=== PATIENT | female | born 1935 | race Caucasian/White ===

== ENCOUNTER 2016-07-14 11:18 | Inpatient (IN) | payer MEDICARE, OTHER ==
[~2016-07-14] VITALS: Ht 157.5 cm; Wt 59.0 kg
[~2016-07-14 11:18] MED LIST: ATOR40TA PO; BETH25TA PO; DONE5TAB34 PO; LISI-603 PO; LORA0.5T PO; MEMA5TAB PO; METF500T4 PO; METO25TA3 PO; NIFE30TA2 PO; RIVA10TA PO; TRAM50TA2 PO; TRIA1CAP6 PO; ZOLP5TAB7 PO
[2016-07-14 12:07] LABS: BASOPHILS % (AUTO) 0.1 % (0.0-2.0); DIFF TOTAL % 100 %; EOSINOPHILS # (AUTO) 0.1 /CMM (0.0-0.7); EOSINOPHILS % (AUTO) 0.7 % (0.0-6.0); HEMATOCRIT 35 % (33-45); HEMOGLOBIN 11.3 g/dL (11.5-14.8); LYMPHOCYTES % (AUTO) 5.8 % (20.0-44.0); MEAN CORPUSCULAR HEMOGLOBIN 28 PG (26.0-33.0); MEAN CORPUSCULAR HGB CONC 33 g/dl (31.0-36.0); MEAN CORPUSCULAR VOLUME 86 fL (82-100); MONOCYTES # (AUTO) 0.5 /CMM (0.1-1.30); MONOCYTES % (AUTO) 3.2 % (2.0-12.0); NEUTROPHILS # (AUTO) 14.9 /CMM (1.8-8.9); NEUTROPHILS % (AUTO) 90.2 % (43.0-81.0); PLATELET COUNT (AUTO) 374 /CMM (150-450); WHITE BLOOD COUNT (AUTO) 16.5 K/uL (4.3-11.0)
[2016-07-14] MEDS ORDERED: IV SET PRIMARY 1 EA INFUS.SET MC ONE (12:10)
[2016-07-14] MEDS ORDERED: IV NS 0.9% 500 ML IV ONE (12:10)
[2016-07-14 12:18] LABS: INR 1.2 (0.87-1.13); PROTHROMBIN TIME 12.6 SECS (9.5-12.7)
[2016-07-14 12:21] LABS: ANION GAP 13 (5-14); CALCIUM, SERUM 9.3 mg/dL (8.5-10.1); CARBON DIOXIDE 27 mmol/L (21-32); CHLORIDE 103 mmol/L (98-107); CREATININE 1.3 mg/dL (0.6-1.3); GLUCOSE 219 mg/dL (74-106); POTASSIUM 4.9 mmol/L (3.5-5.1); SODIUM SERUM 138 mmol/L (136-145); UREA NITROGEN, BLOOD 24 mg/dL (7-18)
[2016-07-14 12:29] LABS: TROPONIN I < 0.017 ng/mL (0.00-0.056)
[2016-07-14] MEDS ORDERED: IV NS 0.9% 500 ML BAG IV ONE (12:30)
[2016-07-14 12:34] LABS: ALANINE AMINOTRANSFERASE 20 U/L (12-78); ALBUMIN 3.2 g/dL (3.4-5.0); ASPARTATE AMINOTRANSFERASE 16 U/L (15-37); BILIRUBIN,DIRECT 0.1 mg/dL (0.0-0.2); BILIRUBIN,TOTAL 0.6 mg/dL (0.2-1.0); INDIRECT BILIRUBIN 0.5 mg/dL (0.0-1.1); TOTAL PROTEIN, SERUM 7.1 g/dL (6.4-8.2)
[2016-07-14 12:35] LABS: KETONES,URINE NEGATIVE (NEGATIVE); LEUKOCYTE ESTERASE ,URINE 2+ (NEGATIVE); PH,URINE 6.5 (5.0-8.0)
[2016-07-14 12:36] LABS: LACTIC ACID 3.2 mmol/L (0.4-2.0)
[2016-07-14] MEDS ORDERED: POTA8TAB3 PO (12:46)
[2016-07-14 13:01] LABS: ADD UA MICROSCOPIC YES
[2016-07-14 13:01] LABS: *LACTIC ACID REFLEX FLAG YES
[2016-07-14 13:06] LABS: ADD URINE CULTURE YES; RBC,URINE 21-50 /HPF (0-2); WBC,URINE 21-50 /HPF (0-3)
[2016-07-14] MEDS ORDERED: CEFTRIAXONE 1GM BAG (ER ONLY) 50 ML IV ONE ×2 (13:24→13:30)
[2016-07-14] MEDS ORDERED: IV SET PRIMARY PUMP SET 1 EA INFUS.SET MC ONE ×2 (13:24→14:58)
[2016-07-14] MEDS ORDERED: TRIAMTERENE/HYDROCHLOROTHIAZID (37.5/25MG) 1 UDCAP PO SCH (14:00)
[2016-07-14] MEDS ORDERED: LORAZEPAM 0.5 MG TABLET PO PRN (14:00)
[2016-07-14] MEDS ORDERED: MAG HYDROX/AL HYDROX/SIMETH 30 ML UDC PO PRN (14:00)
[2016-07-14] MEDS ORDERED: ACETAMINOPHEN 325 MG TABLET PO PRN (14:00)
[2016-07-14] MEDS: DONEPEZIL 5 MG TABLET PO SCH (14:00)
[2016-07-14] MEDS ORDERED: Z GUARD REMEDY 2 OZ OINT TP PRN (14:00)
[2016-07-14] MEDS ORDERED: Medication Not On Formulary EA (Potassium Chloride 8 MEQ) PO SCH (14:00)
[2016-07-14] MEDS: LISINOPRIL (20MG) 20 MG TABLET PO SCH ×2 (14:00→16:28)
[2016-07-14] MEDS ORDERED: MAGNESIUM HYDROXIDE 30 ML UDC PO PRN (14:00)
[2016-07-14] MEDS ORDERED: HYDROCODONE/APAP 5/325MG 1 EACH TABLET PO PRN (14:00)
[2016-07-14] MEDS ORDERED: TRAMADOL HCL 50 MG TABLET PO PRN (14:00)
[2016-07-14] MEDS ORDERED: ZOLPIDEM TARTRATE 5 MG TABLET PO PRN ×2 (14:00→22:00)
[2016-07-14] MEDS ORDERED: ONDANSETRON HCL/PF 4 MG/2 ML VIAL IVP PRN (14:00)
[2016-07-14] MEDS: IV NS 0.9% 1,000 ML IV PRN (15:11)
[2016-07-14 16:00] VITALS: BP 122/62
[2016-07-14] MEDS: METOPROLOL SUCCINATE 25 MG TAB.SR.24H PO SCH (16:28)
[2016-07-14 17:00] VITALS: BP 122/62
[2016-07-14] MEDS: MEMANTINE HCL 5 MG TABLET PO SCH (17:08)
[2016-07-14] MEDS: METFORMIN 500 MG TABLET PO SCH (17:08)
[2016-07-14] MEDS: BETHANECHOL CHLORIDE (25 MG) 25 MG TABLET PO SCH (17:08)
[2016-07-14] MEDS: RIVAROXABAN 10 MG TABLET PO SCH (17:09)
[2016-07-14 20:00] VITALS: BP 137/33
[2016-07-14 21:00] VITALS: BP 137/73
[2016-07-14] MEDS: ATORVASTATIN 40 MG TABLET PO SCH (21:03)
[2016-07-15] VITALS (10 sets, daily range): BP systolic 101–162; BP diastolic 64–84
[2016-07-15] MEDS: IV NS 0.9% 1,000 ML IV PRN (04:56)
[2016-07-15 06:51] LABS: BASOPHILS % (AUTO) 0.4 % (0.0-2.0); DIFF TOTAL % 100 %; EOSINOPHILS # (AUTO) 0.2 /CMM (0.0-0.7); EOSINOPHILS % (AUTO) 1.7 % (0.0-6.0); HEMATOCRIT 32 % (33-45); HEMOGLOBIN 10.6 g/dL (11.5-14.8); LYMPHOCYTES # (AUTO) 1.2 /CMM (0.8-4.8); LYMPHOCYTES % (AUTO) 10.3 % (20.0-44.0); MEAN CORPUSCULAR HEMOGLOBIN 29 PG (26.0-33.0); MEAN CORPUSCULAR HGB CONC 33 g/dl (31.0-36.0); MEAN CORPUSCULAR VOLUME 87 fL (82-100); MONOCYTES # (AUTO) 0.7 /CMM (0.1-1.30); NEUTROPHILS # (AUTO) 9.1 /CMM (1.8-8.9); NEUTROPHILS % (AUTO) 81.6 % (43.0-81.0); PLATELET COUNT (AUTO) 307 /CMM (150-450); RED BLOOD CELL COUNT(AUTO) 3.64 MIL/uL (4.0-5.2); WHITE BLOOD COUNT (AUTO) 11.2 K/uL (4.3-11.0)
[2016-07-15 07:33] LABS: ALBUMIN 2.7 g/dL (3.4-5.0); BILIRUBIN,TOTAL 0.6 mg/dL (0.2-1.0); CALCIUM, SERUM 8.8 mg/dL (8.5-10.1); CREATININE 1.3 mg/dL (0.6-1.3); POTASSIUM 4.3 mmol/L (3.5-5.1); TOTAL PROTEIN, SERUM 6.4 g/dL (6.4-8.2)
[2016-07-15] MEDS: LISINOPRIL (20MG) 20 MG TABLET PO SCH ×2 (08:50→16:36)
[2016-07-15] MEDS: BETHANECHOL CHLORIDE (25 MG) 25 MG TABLET PO SCH ×3 (08:51→16:38)
[2016-07-15] MEDS: METOPROLOL SUCCINATE 25 MG TAB.SR.24H PO SCH ×2 (08:51→16:38)
[2016-07-15] MEDS: NIFEdipine XL (30MG) 30 MG TAB PO SCH (08:51)
[2016-07-15] MEDS: DONEPEZIL 5 MG TABLET PO SCH (09:02)
[2016-07-15] MEDS: PANTOPRAZOLE 40 MG TABLET.DR PO SCH (09:02)
[2016-07-15] MEDS: TRIAMTERENE/HYDROCHLOROTHIAZID (37.5/25MG) 1 UDCAP PO SCH (09:03)
[2016-07-15 09:10] LABS: IRON, SERUM 25 ug/dl (50-175); PERCENT SATURATION 11 % (14-33); TOTAL IRON BINDING CAPACITY 222 ug/dl (250-450)
[2016-07-15] MEDS ORDERED: SECONDARY IV SET 1 EA INFUS.SET MC ONE ×2 (09:18→13:58)
[2016-07-15] MEDS: DILTIAZEM HCL CD 240 MG PO SCH (09:24)
[2016-07-15] MEDS: Magnesium 1GM/D5W 100ML PREMIX 100 ML IV SCH ×2 (09:25→11:22)
[2016-07-15 09:42] LABS: THYROID STIMULATING HORMONE 2.226 uIU/mL (0.358-3.74)
[2016-07-15 10:58] LABS: TROPONIN I < 0.017 ng/mL (0.00-0.056)
[2016-07-15] MEDS ORDERED: CEFTRIAXONE 1 G in IV D5W 50 ML IV SCH (14:00)
[2016-07-15] MEDS: CEFTRIAXONE 1 G in IV D5W 50 ML IV SCH (14:03)
[2016-07-15] MEDS: RIVAROXABAN 10 MG TABLET PO SCH (16:54)
[2016-07-15] MEDS: MEMANTINE HCL 5 MG TABLET PO SCH (16:58)
[2016-07-15] MEDS: METFORMIN 500 MG TABLET PO SCH (16:58)
[2016-07-15] MEDS: ATORVASTATIN 40 MG TABLET PO SCH (22:46)
[2016-07-16] VITALS (7 sets, daily range): BP systolic 115–149; BP diastolic 52–89
[2016-07-16 06:50] LABS: BASOPHILS % (AUTO) 0.2 % (0.0-2.0); DIFF TOTAL % 100 %; EOSINOPHILS # (AUTO) 0.1 /CMM (0.0-0.7); EOSINOPHILS % (AUTO) 0.8 % (0.0-6.0); HEMATOCRIT 31 % (33-45); HEMOGLOBIN 10.4 g/dL (11.5-14.8); LYMPHOCYTES # (AUTO) 1.1 /CMM (0.8-4.8); LYMPHOCYTES % (AUTO) 8.7 % (20.0-44.0); MEAN CORPUSCULAR HEMOGLOBIN 29 PG (26.0-33.0); MEAN CORPUSCULAR HGB CONC 34 g/dl (31.0-36.0); MEAN CORPUSCULAR VOLUME 86 fL (82-100); MONOCYTES # (AUTO) 0.8 /CMM (0.1-1.30); NEUTROPHILS # (AUTO) 10.6 /CMM (1.8-8.9); NEUTROPHILS % (AUTO) 84.3 % (43.0-81.0); PLATELET COUNT (AUTO) 325 /CMM (150-450); RED BLOOD CELL COUNT(AUTO) 3.61 MIL/uL (4.0-5.2); WHITE BLOOD COUNT (AUTO) 12.6 K/uL (4.3-11.0)
[2016-07-16 07:27] LABS: CREATININE 1.2 mg/dL (0.6-1.3); POTASSIUM 3.4 mmol/L (3.5-5.1)
[2016-07-16] MEDS: BETHANECHOL CHLORIDE (25 MG) 25 MG TABLET PO SCH ×3 (08:41→17:34)
[2016-07-16] MEDS: NIFEdipine XL (30MG) 30 MG TAB PO SCH (08:41)
[2016-07-16] MEDS: DONEPEZIL 5 MG TABLET PO SCH (08:42)
[2016-07-16] MEDS: PANTOPRAZOLE 40 MG TABLET.DR PO SCH (08:42)
[2016-07-16] MEDS: METOPROLOL SUCCINATE 25 MG TAB.SR.24H PO SCH ×2 (08:42→17:35)
[2016-07-16] MEDS: TRIAMTERENE/HYDROCHLOROTHIAZID (37.5/25MG) 1 UDCAP PO SCH (08:42)
[2016-07-16] MEDS: DILTIAZEM HCL CD 240 MG PO SCH (08:42)
[2016-07-16] MEDS: LISINOPRIL (20MG) 20 MG TABLET PO SCH ×2 (08:43→17:36)
[2016-07-16] MEDS ORDERED: POTASSIUM CHLORIDE 20 MEQ TAB.PRT.SR PO SCH ×2 (11:00→12:00)
[2016-07-16] MEDS: CEFTRIAXONE 1 G in IV D5W 50 ML IV SCH (14:28)
[2016-07-16] MEDS: MEMANTINE HCL 5 MG TABLET PO SCH (17:35)
[2016-07-16] MEDS: RIVAROXABAN 10 MG TABLET PO SCH (17:36)
[2016-07-16] MEDS: METFORMIN 500 MG TABLET PO SCH (17:36)
[2016-07-16] MEDS: IV NS 0.9% 1,000 ML IV PRN (20:31)
[2016-07-16] MEDS: ATORVASTATIN 40 MG TABLET PO SCH (21:42)
[2016-07-17] MEDS: PANTOPRAZOLE 40 MG TABLET.DR PO SCH (06:53)
[2016-07-17 07:16] LABS: BASOPHILS % (AUTO) 0.4 % (0.0-2.0); DIFF TOTAL % 100 %; EOSINOPHILS # (AUTO) 0.1 /CMM (0.0-0.7); EOSINOPHILS % (AUTO) 0.7 % (0.0-6.0); HEMATOCRIT 29 % (33-45); HEMOGLOBIN 9.6 g/dL (11.5-14.8); LYMPHOCYTES # (AUTO) 1.1 /CMM (0.8-4.8); LYMPHOCYTES % (AUTO) 9.8 % (20.0-44.0); MEAN CORPUSCULAR HEMOGLOBIN 29 PG (26.0-33.0); MEAN CORPUSCULAR HGB CONC 33 g/dl (31.0-36.0); MEAN CORPUSCULAR VOLUME 85 fL (82-100); MONOCYTES # (AUTO) 0.7 /CMM (0.1-1.30); MONOCYTES % (AUTO) 6.2 % (2.0-12.0); NEUTROPHILS # (AUTO) 9.3 /CMM (1.8-8.9); NEUTROPHILS % (AUTO) 82.9 % (43.0-81.0); PLATELET COUNT (AUTO) 351 /CMM (150-450); RED BLOOD CELL COUNT(AUTO) 3.38 MIL/uL (4.0-5.2); WHITE BLOOD COUNT (AUTO) 11.2 K/uL (4.3-11.0)
[2016-07-17 07:24] LABS: CALCIUM, SERUM 8.4 mg/dL (8.5-10.1); CREATININE 1.5 mg/dL (0.6-1.3); POTASSIUM 4.2 mmol/L (3.5-5.1)
[2016-07-17 08:12] VITALS: BP 105/58
[2016-07-17] MEDS: METOPROLOL SUCCINATE 25 MG TAB.SR.24H PO SCH ×2 (09:00→17:00)
[2016-07-17] MEDS: LISINOPRIL (20MG) 20 MG TABLET PO SCH ×2 (09:00→17:00)
[2016-07-17] MEDS: DILTIAZEM HCL CD 240 MG PO SCH (09:00)
[2016-07-17] MEDS: NIFEdipine XL (30MG) 30 MG TAB PO SCH (09:00)
[2016-07-17] MEDS: DONEPEZIL 5 MG TABLET PO SCH (09:11)
[2016-07-17] MEDS: BETHANECHOL CHLORIDE (25 MG) 25 MG TABLET PO SCH ×3 (09:11→18:01)
[2016-07-17] MEDS: IV NS 0.9% 1,000 ML IV PRN (14:31)
[2016-07-17] MEDS: CEFTRIAXONE 1 G in IV D5W 50 ML IV SCH (14:34)
[2016-07-17] MEDS ORDERED: SECONDARY IV SET 1 EA INFUS.SET MC ONE (14:40)
[2016-07-17 16:13] VITALS: BP 92/43
[2016-07-17 16:30] VITALS: BP 100/50
[2016-07-17 17:00] VITALS: BP 100/50
[2016-07-17] MEDS: METFORMIN 500 MG TABLET PO SCH (17:49)
[2016-07-17] MEDS: MEMANTINE HCL 5 MG TABLET PO SCH (17:49)
[2016-07-17] MEDS: RIVAROXABAN 10 MG TABLET PO SCH (17:51)
== END 2016-07-17 17:15 | DRG 871 ==
LOC: ER 11:20 → TELE1 13:50 → MEDSG1 07-16 12:45 → MED 07-16 20:57
PROVIDERS: ADMIT Internal Medicine; ATTEND Internal Medicine
DX: A41.51 Sepsis due to Escherichia coli [E. coli] (principal); N17.0 Acute kidney failure with tubular necrosis; G92 Toxic encephalopathy; N39.0 Urinary tract infection, site not specified; E87.2 Acidosis; R65.20 Severe sepsis without septic shock; E86.0 Dehydration; I25.10 Atherosclerotic heart disease of native coronary artery without angina pectoris; E11.9 Type 2 diabetes mellitus without complications; F03.90 Unspecified dementia, unspecified severity, without behavioral disturbance, psychotic disturbance, mood disturbance, and anxiety; Z86.73 Personal history of transient ischemic attack (TIA), and cerebral infarction without residual deficits; W18.30XA Fall on same level, unspecified, initial encounter; Y92.009 Unspecified place in unspecified non-institutional (private) residence as the place of occurrence of the external cause; Z91.19 Patient's noncompliance with other medical treatment and regimen; D63.8 Anemia in other chronic diseases classified elsewhere; I11.9 Hypertensive heart disease without heart failure; E78.5 Hyperlipidemia, unspecified; I48.91 Unspecified atrial fibrillation; D50.9 Iron deficiency anemia, unspecified; M47.814 Spondylosis without myelopathy or radiculopathy, thoracic region
CPT/HCPCS: 36415; 70450-TC; 71010-TC; 73510-TC; 80048-TC; 80053-TC; 80061-TC; 80076-TC; 81000-TC; 82306; 82728-TC; 83540-TC; 83605-TC; 83735-TC; 83880; 84100-TC; 84439-TC; 84443-TC; 84484-TC; 85025-TC; 85730-TC; 87081-TC; 87086-TC; 87186-TC; 93307-TC; 97001-TC; 97530-TC; A4606; J0696; J3475; J7030; J7040; J7060; Z7610

== ENCOUNTER 2017-05-31 13:02 | Inpatient (IN) | payer MEDICARE, OTHER ==
[~2017-05-31] VITALS: Ht 157.5 cm; Wt 58.1 kg
[~2017-05-31 13:02] MED LIST changes: +POTA8TAB3 PO; -ZOLP5TAB7 PO; +ZOLP5TAB8 PO
--- NOTE | 2017-05-31 13:10 | NUR ---
BIBRA FROM HOME ACTING MORE "INAPPROPRIATE THAN NORMAL PER FAMILY". VSS. SEEN BY MD FOR EVAL. PT ALERT AND ABLE TO FOLLOW COMMANDS. SAFETY AND COMFORT MEASURES PROVIDED. WILL MONITOR.
[2017-05-31 13:26] LABS: BASOPHILS # (AUTO) 0.1 /CMM (0.0-0.2); EOSINOPHILS # (AUTO) 0.1 /CMM (0.0-0.7); EOSINOPHILS % (AUTO) 0.7 % (0.0-6.0); HEMATOCRIT 37 % (33-45); LYMPHOCYTES % (AUTO) 17.4 % (20.0-44.0); MEAN CORPUSCULAR HEMOGLOBIN 27 PG (26.0-33.0); MEAN CORPUSCULAR HGB CONC 33 g/dl (31.0-36.0); MEAN CORPUSCULAR VOLUME 82 fL (82-100); MONOCYTES # (AUTO) 0.7 /CMM (0.1-1.30); MONOCYTES % (AUTO) 6.2 % (2.0-12.0); NEUTROPHILS # (AUTO) 8.6 /CMM (1.8-8.9); NEUTROPHILS % (AUTO) 74.7 % (43.0-81.0); PLATELET COUNT (AUTO) 303 /CMM (150-450); RDW COEFFICIENT OF VARIATION 16.2 (11.5-15.0); RED BLOOD CELL COUNT(AUTO) 4.52 MIL/uL (4.0-5.2); WHITE BLOOD COUNT (AUTO) 11.5 K/uL (4.3-11.0)
[2017-05-31 13:35] LABS: CALCIUM, SERUM 9.6 mg/dL (8.5-10.1); CARBON DIOXIDE 29 mmol/L (21-32); CHLORIDE 103 mmol/L (98-107); CREATININE 1.4 mg/dL (0.6-1.3); GLUCOSE 100 mg/dL (74-106); POTASSIUM 4.1 mmol/L (3.5-5.1); SODIUM SERUM 140 mmol/L (136-145); UREA NITROGEN, BLOOD 44 mg/dL (7-18)
[2017-05-31 13:39] LABS: INR 1.1 (0.87-1.13); PROTHROMBIN TIME 11.4 SECS (9.5-12.7)
[2017-05-31 13:41] LABS: ALANINE AMINOTRANSFERASE 22 U/L (12-78); ALBUMIN 3.9 g/dL (3.4-5.0); ALKALINE PHOSPHATASE 88 U/L (46-116); ASPARTATE AMINOTRANSFERASE 17 U/L (15-37); BILIRUBIN,DIRECT 0.1 mg/dL (0.0-0.2); BILIRUBIN,TOTAL 0.5 mg/dL (0.2-1.0); TOTAL PROTEIN, SERUM 7.7 g/dL (6.4-8.2)
[2017-05-31 13:43] LABS: TROPONIN I 0.147 ng/mL (0.00-0.056)
--- NOTE | 2017-05-31 13:50 | NUR ---
PT PLACED ON BED RIVAS- UNABLE TO PROVIDE URINE AT THIS TIME.
[2017-05-31] MEDS ORDERED: MAGN400T26 PO (14:11)
[2017-05-31] MEDS ORDERED: HYDR25TA4 PO (14:11)
[2017-05-31] MEDS ORDERED: ASPI-1152 PO (14:11)
[2017-05-31] MEDS ORDERED: ASPIRIN 325 MG TABLET PO ONE (14:30)
[2017-05-31] MEDS ORDERED: ONDANSETRON HCL/PF 4 MG/2 ML VIAL IVP PRN (15:00)
[2017-05-31] MEDS ORDERED: IV NS 0.9% 1,000 ML BAG IV ONE (15:00)
[2017-05-31] MEDS ORDERED: NITROGLYCERIN 0.4 MG/TAB BOTTLE SL PRN (15:00)
[2017-05-31] MEDS ORDERED: MORPHINE SULFATE INJ 2 MG/ML DISP.SYRIN IV PRN ×2 (15:00)
[2017-05-31] MEDS ORDERED: DEXTROSE 50%-WATER 50 ML DISP.SYRIN IV PRN (15:00)
[2017-05-31] MEDS ORDERED: IV NS 0.9% 1,000 ML IV PRN (15:00)
--- NOTE | 2017-05-31 15:40 | NUR ---
REPORT GIVEN TO BETSY ALMONTE FOR RONALDO
[2017-05-31 16:00] VITALS: BP 172/82
[2017-05-31 16:05] LABS: APPEARANCE,URINE CLEAR (CLEAR); BILIRUBIN,URINE NEGATIVE (NEGATIVE); BLOOD, URINE TRACE Ery/uL (NEGATIVE); COLOR,URINE YELLOW (YELLOW); KETONES,URINE NEGATIVE (NEGATIVE); LEUKOCYTE ESTERASE ,URINE NEGATIVE (NEGATIVE); NITRITE, URINE NEGATIVE (NEGATIVE); PH,URINE 6.5 (5.0-8.0); PROTEIN,URINE TRACE mg/dl (NEGATIVE); UGLUCOSE NEGATIVE (NEGATIVE); UROBILINOGEN,URINE 0.2 EU/dL (0.2)
--- NOTE | 2017-05-31 16:05 | NUR ---
RIG SUPERINTENDENT PATIENT ALERT AND ORIENTED X2, ZAMBIAN SPEAKING ONLY, FAMILY AT BEDSIDE [employer] AND PROVIDED PATIENT'S MEDICAL HISTORY. PATIENT IS IN NO DISTRESS, ABLE TO AMBULATE TO RESTROOM, CONTINENT WITH B&B, NO SOB NOTED, BREATHING EVEN AND UNLABORED, DENIES CHEST PAIN OR DISCOMFORT, TELE MONITOR SHOWS A. FIB 73. KEPT PT COMFORTABLE IN BED, SKIN ASSESSMENT COMPLETED, SKIN DRY AND INTACT, PIV ON RIGHT AC PATENT AND FLUSHES WELL, NEEDS ATTENDED, CALL LIGHT WITHIN REACH, WILL CONTINUE TO MONITOR.
[2017-05-31 16:08] LABS: BACTERIA,URINE Rare /HPF (None Seen); RBC,URINE 0-2 /HPF (0-2); SQUAMOUS EPITHELIAL CELL,UR Few /HPF (None Seen); WBC,URINE 0-2 /HPF (0-3)
[2017-05-31] MEDS: NIFEdipine XL (30MG) 30 MG TAB PO SCH (16:39)
[2017-05-31] MEDS: RIVAROXABAN 15 MG TABLET PO SCH (16:39)
[2017-05-31] MEDS: METOPROLOL SUCCINATE 50 MG TAB.SR.24H PO SCH (16:39)
[2017-05-31] MEDS: BETHANECHOL CHLORIDE (25 MG) 25 MG TABLET PO SCH (16:39)
[2017-05-31] MEDS: BLOOD SUGAR DIAGNOSTIC 1 EACH STRIP VI SCH ×2 (17:25→21:36)
--- NOTE | 2017-05-31 18:12 | NUR ---
CAR LOADER NOTES BS CHECKED 82, NO S/SX OF HYPOGLYCEMIA NOTED, PATIENT SERVED DINNER. MEDICATIONS FROM HOME BROUGHT BY FAMILY AND SENT TO PHARMACY. SOCIAL SERVICE CONSULT ORDERED DUE TO FAMILY RE: FOR ADVANCE DIRECTIVE INFORMATION. IVF NS AT 80ML/HR INFUSING AND TOLERATING WELL, NO DISTRESS NOTED, PATIENT INDEPENDENT WITH BED MOBILITY, BED ALARM ON, BED PLACED IN LOW POSITION AND LOCKED, SIDERAILS X2 UP, CALL LIGHT WITHIN REACH, WILL ENDORSE TO CAMOUFLAGE ASSEMBLER FOR RONALDO.
--- NOTE | 2017-05-31 18:58 | NUR ---
HIDE SPREADER NOTES PATIENT PULLED OUT PIV ON RIGHT AC, RE-INSERTED A NEW PIV ON LEFT HAND #22, RE-EDUCATED PATIENT RE: USE OF PERIPHERAL IV AND IV FLUIDS, TRANSLATED BY ANOTHER RN, PATIENT VERBALIZED UNDERSTANDING. NEEDS ATTENDED AND MET, BED ALARM ON, SIDERAILS X2 UP, CALL LIGHT WITHIN REACH, WILL ENDORSE TO TRIMMING CASER FOR RONALDO.
--- NOTE | 2017-05-31 19:30 | NUR ---
RN NOTES RECEIVED PT AWAKE ON BED, A/OX2, GREEK SPEAKING, A-FIB ON TELE MONITOR HR-69, NO PAIN NOTED, NO SOB, CALL LIGHT WITHIN REACH, SIDERAILSUPX2, CONTINUE TO MONITOR
[2017-05-31 20:00] VITALS: BP 145/70
[2017-05-31 20:44] VITALS: BP 145/70
[2017-05-31] MEDS: ATORVASTATIN 40 MG TABLET PO SCH (21:36)
[2017-05-31] MEDS: LORAZEPAM 0.5 MG TABLET PO PRN (23:55)
--- NOTE | 2017-05-31 23:59 | NUR ---
RN NOTES PT. IS SO ANXIOUS, PT IS REMOVING HER TELE BOX, PT. REMOVED HER IV LINE- ATIVAN 0.5MG PO GIVEN ORDERED, V/S STABLE
[2017-06-01 04:00] VITALS: BP 148/76
[2017-06-01] MEDS: BLOOD SUGAR DIAGNOSTIC 1 EACH STRIP VI SCH ×4 (06:28→21:28)
[2017-06-01 06:32] LABS: BASOPHILS % (AUTO) 0.3 % (0.0-2.0); EOSINOPHILS # (AUTO) 0.2 /CMM (0.0-0.7); EOSINOPHILS % (AUTO) 1.5 % (0.0-6.0); HEMATOCRIT 36 % (33-45); HEMOGLOBIN 11.9 g/dL (11.5-14.8); INR 1.15 (0.87-1.13); LYMPHOCYTES # (AUTO) 1.5 /CMM (0.8-4.8); LYMPHOCYTES % (AUTO) 14.2 % (20.0-44.0); MEAN CORPUSCULAR HEMOGLOBIN 27 PG (26.0-33.0); MEAN CORPUSCULAR HGB CONC 33 g/dl (31.0-36.0); MEAN CORPUSCULAR VOLUME 82 fL (82-100); MONOCYTES # (AUTO) 0.6 /CMM (0.1-1.30); MONOCYTES % (AUTO) 5.2 % (2.0-12.0); NEUTROPHILS # (AUTO) 8.6 /CMM (1.8-8.9); NEUTROPHILS % (AUTO) 78.8 % (43.0-81.0); PLATELET COUNT (AUTO) 298 /CMM (150-450); RDW COEFFICIENT OF VARIATION 16.2 (11.5-15.0); RED BLOOD CELL COUNT(AUTO) 4.42 MIL/uL (4.0-5.2); WHITE BLOOD COUNT (AUTO) 10.9 K/uL (4.3-11.0)
--- NOTE | 2017-06-01 06:36 | NUR ---
RN NOTES AWAKE, WALKING IN THE HALLWAY, DENIES PAIN, NO SOB, MORNING CARE RENDERED, SITTER AT BEDSIDE, PT NEEDS ATTENDED
[2017-06-01 06:38] LABS: AMYLASE 50 U/L (25-115); CALCIUM, SERUM 9.5 mg/dL (8.5-10.1); CARBON DIOXIDE 31 mmol/L (21-32); CHLORIDE 101 mmol/L (98-107); CREATININE 1.2 mg/dL (0.6-1.3); GLUCOSE 124 mg/dL (74-106); LIPASE 167 U/L (73-393); MAGNESIUM 1.5 mg/dL (1.8-2.4); PHOSPHORUS 3.1 mg/dL (2.5-4.9); POTASSIUM 3.6 mmol/L (3.5-5.1); SODIUM SERUM 141 mmol/L (136-145); UREA NITROGEN, BLOOD 35 mg/dL (7-18)
[2017-06-01 06:44] LABS: CHOLESTEROL 140 mg/dL (<200); HDL CHOLESTEROL 82 mg/dL (40-60); LDL 51 mg/dL (0-99); TRIGLYCERIDES 51 mg/dL (30-150)
--- NOTE | 2017-06-01 07:10 | NUR ---
RN OPENING NOTES PATIENT RESTING IN BED. NONLABORED BREATHING NOTED ON ROOM AIR. PATIENT AOX2 WITH PERIODS OF CONFUSION. NO SIGNS OF DISTRESS NOTED. NO FACIAL GRIMACING. BED IN LOWEST SHANDRA POSITION. CALL LIGHT WITHIN REACH. WILL CONTINUE TO MONITOR. SITTER AT BEDSIDE
[2017-06-01 08:00] VITALS: BP 146/78
[2017-06-01] MEDS: BETHANECHOL CHLORIDE (25 MG) 25 MG TABLET PO SCH ×3 (09:46→17:23)
[2017-06-01] MEDS: MEMANTINE HCL 5 MG TABLET PO SCH (09:46)
[2017-06-01] MEDS: MAGNESIUM OXIDE 400 MG TABLET PO SCH (09:47)
[2017-06-01] MEDS: ASPIRIN EC 81 MG TABLET.DR PO SCH (09:47)
[2017-06-01] MEDS: DONEPEZIL 5 MG TABLET PO SCH (09:47)
[2017-06-01] MEDS: METOPROLOL SUCCINATE 50 MG TAB.SR.24H PO SCH ×2 (09:48→17:24)
[2017-06-01] MEDS: NIFEdipine XL (30MG) 30 MG TAB PO SCH (09:49)
[2017-06-01] MEDS: Magnesium 1GM/D5W 100ML PREMIX 100 ML IV SCH ×2 (10:00→11:43)
[2017-06-01] MEDS: LOSARTAN POTASSIUM 50 MG TABLET PO SCH ×2 (10:30→21:23)
[2017-06-01] MEDS ORDERED: Magnesium 1GM/D5W 100ML PREMIX 100 ML IV SCH (13:30)
[2017-06-01 16:00] VITALS: BP 140/78
[2017-06-01] MEDS: RIVAROXABAN 15 MG TABLET PO SCH (17:25)
[2017-06-01] MEDS: INSULIN REGULAR, HUMAN 100 UNIT/ML 3 ML VIAL SQ PRN (17:33)
--- NOTE | 2017-06-01 19:25 | NUR ---
RN NOTES: WASTED LORAZEPAM EARLIER IN THE DAY. 0.5 MG WITH KAMERON ALMONTE. SPOKE TO PHARMACY REGARDING CHECKING THE STATUS OF WASTING. DOUBLED CHECK THE OMNICELL. NO DISCREPENCIES NOTED. ATTEMPTED TO CALL PHARMACY MULTIPLE TIMES TO UPDATE. UNABLE TO REACH
--- NOTE | 2017-06-01 19:30 | NUR ---
RN CLOSING NOTES PATIENT RESTING IN BED. NONLABORED BREATHING NOTED ON ROOM AIR. PATIENT AOX2 WITH PERIODS OF CONFUSION. NO SIGNS OF DISTRESS NOTED. NO FACIAL GRIMACING. BED IN LOWEST LOCKED POSITION. IV SITE ON BJ PATENT AND INTACT. CALL LIGHT WITHIN REACH. ENDORSED TO NEXT SHIFT. SITTER AT BEDSIDE
--- NOTE | 2017-06-01 19:30 | NUR ---
RN OPENING NOTES PATIENT IS IN BED, ALERT AND ORIENTED X2, KOREAN SPEAKING. SITTER PRESENT AT BEDSIDE. VS STABLE. NO C/O PAIN AT THIS TIME. NO SOB NOTED. RESPIRATIONS EVEN AND UNLABORED. IV ACCESS ON BJ PATENT AND INTACT, INFUSING NS AT 80 ML/HR. NO REDNESS OR INFILTRATION NOTED. BED IN LOW AND LOCKED POSITION, SIDE RAILS X2. CALL LIGHT WITHIN EASY REACH. WILL CONTINUE TO MONITOR AND ASSESS DURING THE SHIFT.
[2017-06-01 20:00] VITALS: BP 122/69
[2017-06-01] MEDS: ATORVASTATIN 40 MG TABLET PO SCH (21:23)
[2017-06-01] MEDS: *INSULIN REGULAR(HUMULIN R)HUM 100 UNIT/ML VIAL SQ PRN (21:29)
--- NOTE | 2017-06-01 21:30 | NUR ---
RN NOTES BS 91. NO INSULIN ADMINISTERED PER PROTOCOL. CONTINUE TO MONITOR.
[2017-06-01] MEDS: LORAZEPAM 0.5 MG TABLET PO PRN (21:48)
[2017-06-02] MEDS: BLOOD SUGAR DIAGNOSTIC 1 EACH STRIP VI SCH ×4 (06:06→21:32)
[2017-06-02] MEDS: INSULIN REGULAR, HUMAN 100 UNIT/ML 3 ML VIAL SQ PRN ×2 (06:12→12:54)
--- NOTE | 2017-06-02 06:33 | NUR ---
RN CLOSING NOTES PATIENT IS SLEEPING IN BED, EASY TO AROUSE, ALERT AND ORIENTED X2, DANISH SPEAKING. SITTER PRESENT AT BEDSIDE. VS STABLE. NO SOB NOTED. RESPIRATIONS EVEN AND UNLABORED. IV ACCESS ON BJ PATENT AND INTACT. NO REDNESS OR INFILTRATION NOTED. ALL NEEDS ARE MET AND MEDICATIONS GIVEN PER MD ORDER. BED IN LOW AND LOCKED POSITION, SIDE RAILS X2. CALL LIGHT WITHIN EASY REACH. WILL ENDORSE TO RN DAY SHIFT FOR RONALDO.
[2017-06-02 07:13] LABS: BASOPHILS # (AUTO) 0.1 /CMM (0.0-0.2); BASOPHILS % (AUTO) 0.5 % (0.0-2.0); EOSINOPHILS # (AUTO) 0.2 /CMM (0.0-0.7); EOSINOPHILS % (AUTO) 2.3 % (0.0-6.0); HEMATOCRIT 38 % (33-45); HEMOGLOBIN 12.5 g/dL (11.5-14.8); LYMPHOCYTES # (AUTO) 1.9 /CMM (0.8-4.8); LYMPHOCYTES % (AUTO) 18.2 % (20.0-44.0); MEAN CORPUSCULAR HEMOGLOBIN 27 PG (26.0-33.0); MEAN CORPUSCULAR HGB CONC 33 g/dl (31.0-36.0); MEAN CORPUSCULAR VOLUME 82 fL (82-100); MONOCYTES # (AUTO) 0.7 /CMM (0.1-1.30); MONOCYTES % (AUTO) 6.4 % (2.0-12.0); NEUTROPHILS # (AUTO) 7.6 /CMM (1.8-8.9); NEUTROPHILS % (AUTO) 72.6 % (43.0-81.0); PLATELET COUNT (AUTO) 321 /CMM (150-450); RDW COEFFICIENT OF VARIATION 16.6 (11.5-15.0); RED BLOOD CELL COUNT(AUTO) 4.71 MIL/uL (4.0-5.2); WHITE BLOOD COUNT (AUTO) 10.5 K/uL (4.3-11.0)
[2017-06-02 07:20] LABS: CALCIUM, SERUM 9.3 mg/dL (8.5-10.1); CARBON DIOXIDE 26 mmol/L (21-32); CHLORIDE 101 mmol/L (98-107); CREATININE 1.2 mg/dL (0.6-1.3); GLUCOSE 134 mg/dL (74-106); MAGNESIUM 2.3 mg/dL (1.8-2.4); PHOSPHORUS 3.1 mg/dL (2.5-4.9); POTASSIUM 3.1 mmol/L (3.5-5.1); SODIUM SERUM 139 mmol/L (136-145); UREA NITROGEN, BLOOD 40 mg/dL (7-18)
--- NOTE | 2017-06-02 07:30 | NUR ---
RN MS NOTE PT AWAKE, SITTING IN BED, ALERT AND ORIENTED, NO COMPLAINT OF PAIN, BREATHING PATTERN NORMAL AND NOT LABORED, SITTER AT BEDSIDE, ASSISTED TO BATHROOM NEEDED.
[2017-06-02 08:00] VITALS: BP 124/63
[2017-06-02] MEDS: MAGNESIUM OXIDE 400 MG TABLET PO SCH (08:37)
[2017-06-02] MEDS: METOPROLOL SUCCINATE 50 MG TAB.SR.24H PO SCH ×2 (08:37→17:00)
[2017-06-02] MEDS: ASPIRIN EC 81 MG TABLET.DR PO SCH (08:38)
[2017-06-02] MEDS: MEMANTINE HCL 5 MG TABLET PO SCH (08:38)
[2017-06-02] MEDS: LOSARTAN POTASSIUM 50 MG TABLET PO SCH ×2 (08:38→21:24)
[2017-06-02] MEDS: NIFEdipine XL (30MG) 30 MG TAB PO SCH (08:38)
[2017-06-02] MEDS: DONEPEZIL 5 MG TABLET PO SCH (08:38)
[2017-06-02] MEDS: BETHANECHOL CHLORIDE (25 MG) 25 MG TABLET PO SCH ×3 (08:38→16:41)
[2017-06-02] MEDS ORDERED: POTASSIUM CHLORIDE 20 MEQ TAB.PRT.SR PO SCH (11:00)
[2017-06-02] MEDS: POTASSIUM CHLORIDE 20 MEQ TAB.PRT.SR PO SCH ×4 (11:39→16:40)
--- NOTE | 2017-06-02 11:59 | NUR ---
RN MS NOTES PT IN BED, RESTING, NO SIGN OF PAIN OR DISTRESS, SEEN BY PHYSICAL THERAPIST, ABLE TO AMBULATE ALONG THE HALLWAY WITH A WALKER WITH STANDBY ASSISTANCE WITH SLOW AND STEADY GAIT, PT SEEN BY DR. BRASWELL, SITTER AT BEDSIDE, ASSISTED WITH NEEDS.
[2017-06-02 16:00] VITALS: BP 121/70
[2017-06-02] MEDS: RIVAROXABAN 15 MG TABLET PO SCH (16:46)
--- NOTE | 2017-06-02 18:35 | NUR ---
RN MS NOTES PT IN BED, AWAKE, ALERT, NO COMPLAINT OF PAIN, BREATHING PATTERN NORMAL, SITTER AT BEDSIDE, PT WALKS OCCASIONALLY ALONG THE HALLWAY WITH A WALKER ACCOMPANIED BY SITTER, WITH SLOW AND STEADY GAIT, TOLERATING CURRENT DIET WELL, KEPT CLEAN AND COMFORTABLE, PM CARE RENDERED, ALL NEEDS ATTENDED.
--- NOTE | 2017-06-02 19:30 | NUR ---
RN OPENING NOTES PATIENT IS IN BED, ALERT AND ORIENTED X2, AZERI SPEAKING. SITTER PRESENT AT BEDSIDE. VS STABLE. NO C/O PAIN AT THIS TIME. NO SOB NOTED. RESPIRATIONS EVEN AND UNLABORED. IV ACCESS ON BJ PATENT AND INTACT, INFUSING NS AT 80 ML/HR. NO REDNESS OR INFILTRATION NOTED. BED IN LOW AND LOCKED POSITION, SIDE RAILS X2. CALL LIGHT WITHIN EASY REACH. WILL CONTINUE TO MONITOR AND ASSESS DURING THE SHIFT.
[2017-06-02 20:00] VITALS: BP 124/67
[2017-06-02] MEDS: ATORVASTATIN 40 MG TABLET PO SCH (21:23)
[2017-06-02] MEDS: *INSULIN REGULAR(HUMULIN R)HUM 100 UNIT/ML VIAL SQ PRN (21:34)
[2017-06-03] MEDS: BLOOD SUGAR DIAGNOSTIC 1 EACH STRIP VI SCH ×2 (06:40→11:18)
[2017-06-03] MEDS: INSULIN REGULAR, HUMAN 100 UNIT/ML 3 ML VIAL SQ PRN (06:41)
--- NOTE | 2017-06-03 06:47 | NUR ---
RN CLOSING NOTES PATIENT IS SLEEPING IN BED, ALERT AND ORIENTED X2, ARABIC SPEAKING. SITTER PRESENT AT BEDSIDE. VS STABLE. NO C/O PAIN AT THIS TIME. NO SOB NOTED. RESPIRATIONS EVEN AND UNLABORED. IV ACCESS ON BJ PATENT AND INTACT, NO REDNESS OR INFILTRATION NOTED. ALL NEEDS ARE MET AND MEDICATIONS GIVEN PER MD ORDER. BED IN LOW AND LOCKED POSITION, SIDE RAILS X2. CALL LIGHT WITHIN EASY REACH. WILL ENDORSE TO RN DAY SHIFT FOR RONALDO.
[2017-06-03 08:00] VITALS: BP 160/87
--- NOTE | 2017-06-03 08:00 | NUR ---
rn notes received patient in the room. a/o x1, confused, disorganized thoughts, need constant redirection, combative,wonders surrounding. 1:1 sitter next to the bed for safety, using walker, administered scheduled medication, v/s taken bp- 160/87. p-100, needs attended and anticipated.
[2017-06-03] MEDS: MEMANTINE HCL 5 MG TABLET PO SCH (08:50)
[2017-06-03] MEDS: DONEPEZIL 5 MG TABLET PO SCH (08:50)
[2017-06-03] MEDS: METOPROLOL SUCCINATE 50 MG TAB.SR.24H PO SCH (08:50)
[2017-06-03] MEDS: LOSARTAN POTASSIUM 50 MG TABLET PO SCH (08:50)
[2017-06-03] MEDS: MAGNESIUM OXIDE 400 MG TABLET PO SCH (08:51)
[2017-06-03] MEDS: LORAZEPAM 0.5 MG TABLET PO PRN (08:51)
[2017-06-03] MEDS: NIFEdipine XL (30MG) 30 MG TAB PO SCH (08:51)
[2017-06-03] MEDS: ASPIRIN EC 81 MG TABLET.DR PO SCH (08:51)
[2017-06-03] MEDS: BETHANECHOL CHLORIDE (25 MG) 25 MG TABLET PO SCH ×2 (08:51→12:56)
--- NOTE | 2017-06-03 08:51 | NUR ---
rn notes patient very anxious, paranoid, administered ativan 0.5 mg po prn, v/s taken bp 160/87, p-100, 1:1 sitter next to the bed for safety, continued monitoring.
--- NOTE | 2017-06-03 10:24 | NUR ---
RN NOTES PATIENT IN THE BED, MEDICATION WERE ADMINISTERED EFFECTIVE, PATIENT LYING IN THE BED, NO ACUTE DISTRESS, 1:1 SITTER NEXT TO THE BED FOR SAFETY, CALL LIGHT WITHIN TO REACH, CONTINUED MONITORING.
--- NOTE | 2017-06-03 11:44 | NUR ---
RN NOTES' BS-107 MG/DL, NO COVERAGE GIVEN, PATIENT GOING TO D/C SNF., DAUGHTER SITING NEXT TO THE BED, SAFETY PRECAUTION MAINTAINED ALL THE TIME.
[2017-06-03 12:56] VITALS: BP 152/66
[2017-06-03] MEDS ORDERED: CLONIDINE HCL 0.3 MG/24H PTWK 1 EA PATCH TD SCH (13:00)
--- NOTE | 2017-06-03 15:25 | NUR ---
DISCHARGE NOTES PATIENT DISCHARGE AT THIS TIME GOING SNF. PATIENT A/O X1, CONFUSED, MD COMPLIANT, V/S STABLE, MEDICALLY STABLE, NO C/O PAIN. MED RECONCILIATION, AND DISCHARGE ORDER REVIEWED AND EXPLAINED TO. REPORT GIVEN SNF RN. RN VERBALIZED UNDERSTANDING. BELONGING RETURNED BACK TO THE PATIENT. PATIENT NIGHT CLEANER BY AMBULANCE. SON NAME ALESHIA AWARE OF PHONE # [phone].
== END 2017-06-03 14:45 | DRG 280 ==
LOC: ER 13:04 → TELE 15:49 → MED 06-01 09:40
PROVIDERS: ADMIT Internal Medicine; ATTEND Internal Medicine
DX: I21.4 Non-ST elevation (NSTEMI) myocardial infarction (principal); N17.0 Acute kidney failure with tubular necrosis; G93.41 Metabolic encephalopathy; D68.59 Other primary thrombophilia; E11.22 Type 2 diabetes mellitus with diabetic chronic kidney disease; E78.5 Hyperlipidemia, unspecified; F03.90 Unspecified dementia, unspecified severity, without behavioral disturbance, psychotic disturbance, mood disturbance, and anxiety; I12.9 Hypertensive chronic kidney disease with stage 1 through stage 4 chronic kidney disease, or unspecified chronic kidney disease; I25.10 Atherosclerotic heart disease of native coronary artery without angina pectoris; I48.91 Unspecified atrial fibrillation; N18.9 Chronic kidney disease, unspecified; Z79.01 Long term (current) use of anticoagulants; Z79.84 Long term (current) use of oral hypoglycemic drugs; Z86.73 Personal history of transient ischemic attack (TIA), and cerebral infarction without residual deficits; Z87.440 Personal history of urinary (tract) infections; Z91.81 History of falling
CPT/HCPCS: 36415; 70450-TC; 71010-TC; 80048-TC; 80061-TC; 80076-TC; 81000-TC; 82150-TC; 82962-TC; 83690-TC; 83735-TC; 84100-TC; 84484-TC; 85025-TC; 85610-TC; 85730-TC; 87040-TC; 87081-TC; 87086-TC; 93307-TC; J1815; J3475; J7030

== ENCOUNTER 2017-12-26 06:04 | Inpatient (IN) | payer MEDICARE, OTHER ==
[~2017-12-26] VITALS: Ht 154.9 cm; Wt 52.2 kg
[~2017-12-26 06:04] MED LIST changes: +ASPI-1152 PO; +HYDR25TA4 PO; +MAGN400T26 PO; -METF500T4 PO; +METF500T6 PO; -TRIA1CAP6 PO
--- NOTE | 2017-12-26 06:39 | NUR ---
PT BIB [facility] C/C LT KNEE PAIN FROM MECHANICAL SLIP AND FALL. PEDAL PULSES PRESENT. SHORTENING AND OUTWARD ROTATION OF THE LT LEG. PAIN ON LT HIP. PT AA/OX4. NAD. VSS. NO OTHER TRAUMA NOTED. EQUAL SENIOR JAVA DEVELOPER, PULSES, MOTOR AND SENSATION PRESENT X4. AWAITING MD CASTILLO. LAB AT BEDSIDE.
[2017-12-26 06:50] LABS: EOSINOPHILS % (AUTO) 0.1 % (0.0-6.0); HEMATOCRIT 42 % (33-45); HEMOGLOBIN 13.9 g/dL (11.5-14.8); LYMPHOCYTES % (AUTO) 9.1 % (20.0-44.0); MEAN CORPUSCULAR HEMOGLOBIN 29 PG (26.0-33.0); MEAN CORPUSCULAR HGB CONC 33 g/dl (31.0-36.0); MEAN CORPUSCULAR VOLUME 87 fL (82-100); MONOCYTES # (AUTO) 0.3 /CMM (0.1-1.30); MONOCYTES % (AUTO) 3.1 % (2.0-12.0); NEUTROPHILS # (AUTO) 9.4 /CMM (1.8-8.9); NEUTROPHILS % (AUTO) 87.7 % (43.0-81.0); PLATELET COUNT (AUTO) 338 /CMM (150-450); RDW COEFFICIENT OF VARIATION 15.5 (11.5-15.0); RED BLOOD CELL COUNT(AUTO) 4.88 MIL/uL (4.0-5.2); WHITE BLOOD COUNT (AUTO) 10.7 K/uL (4.3-11.0)
[2017-12-26 07:06] LABS: INR 1.37 (0.87-1.13)
[2017-12-26 07:15] LABS: ALANINE AMINOTRANSFERASE 25 U/L (12-78); ALKALINE PHOSPHATASE 50 U/L (46-116); ASPARTATE AMINOTRANSFERASE 19 U/L (15-37); BILIRUBIN,DIRECT 0.2 mg/dL (0.0-0.2); CALCIUM, SERUM 9.9 mg/dL (8.5-10.1); CARBON DIOXIDE 24 mmol/L (21-32); CHLORIDE 98 mmol/L (98-107); CREATININE 1.5 mg/dL (0.6-1.3); GLUCOSE 162 mg/dL (74-106); POTASSIUM 3.8 mmol/L (3.5-5.1); SODIUM SERUM 136 mmol/L (136-145); TOTAL PROTEIN, SERUM 7.7 g/dL (6.4-8.2); UREA NITROGEN, BLOOD 34 mg/dL (7-18)
--- NOTE | 2017-12-26 07:15 | NUR ---
REPORT GIVEN TO GAGE SENIOR. STABLE CONDITION. VSS. NAD.
[2017-12-26 07:19] LABS: TROPONIN I < 0.017 ng/mL (0.00-0.056)
--- NOTE | 2017-12-26 07:29 | NUR ---
CALLED FOR BED HOUSE SUP
--- NOTE | 2017-12-26 07:53 | NUR ---
FR belol catheter inserted per sterile protocal. Immediate output (50)ML of urine, color (YELLOW), clarity (CLEAR). PATIENT TOLERATED THE PROCEDURE.
[2017-12-26] MEDS ORDERED: CLON0.5T12 PO (08:08)
[2017-12-26] MEDS ORDERED: TRAZ-182 PO (08:08)
[2017-12-26] MEDS ORDERED: TEMA15CA PO (08:08)
--- NOTE | 2017-12-26 08:11 | NUR ---
REPORT GIVEN TO GAGE KERNS FOR RONALDO RM [id number]
--- NOTE | 2017-12-26 08:29 | NUR ---
ERIC ON-CALL PAGED AGAIN,
--- NOTE | 2017-12-26 08:58 | NUR ---
REPORT GIVEN TO GAGE MEYER FOR RONALDO MS 205
[2017-12-26 09:00] VITALS: BP 171/97
--- NOTE | 2017-12-26 09:10 | NUR ---
RN NOTES PATIENT A/XO2-3, KINYARWANDA SPEAKING, VERBALLY RESPONSIVE, NO DISTRESS NOTED, BREATHING EVEN AND UNLABORED, NO SOB NOTED, PATIENT C/O LEFT HIP PAIN WHEN MOVED. NEEDS ATTENDED, CALL LIGHT WITHIN REACH, WILL CONTINUE TO MONITOR.
--- NOTE | 2017-12-26 10:30 | NUR ---
RN NOTES SKIN ASSESSMENT COMPLETED, SKIN DRY AND INTACT, NOTED WITH REDNESS ON SACRAL, BILATERAL HEELS, AND ON RIGHT LATERAL FOOT. WOUND CONSULT TRIGGERED. NEEDS ATTENDED AND MET, CALL LIGHT WITHIN REACH, WILL CONTINUE TO MONITOR. Addendum: 12/26/17 at 1557 by BETSY LAND RN ADDENDUM: PHOTOS DONE AND PLACED IN CHART.
[2017-12-26] MEDS ORDERED: Z GUARD REMEDY 2 OZ OINT TP PRN (11:30)
[2017-12-26] MEDS ORDERED: ONDANSETRON HCL/PF 4 MG/2 ML VIAL IVP PRN (11:30)
[2017-12-26] MEDS ORDERED: clonazePAM 0.5 MG TABLET PO PRN (11:30)
[2017-12-26] MEDS ORDERED: ACETAMINOPHEN 325 MG TABLET PO PRN (11:30)
[2017-12-26] MEDS: IV NS 0.9% 1,000 ML IV PRN (12:05)
[2017-12-26] MEDS: BETHANECHOL CHLORIDE (25 MG) 25 MG TABLET PO SCH ×2 (13:47→17:06)
[2017-12-26 16:14] VITALS: BP 152/84
[2017-12-26] MEDS: LISINOPRIL (20MG) 20 MG TABLET PO SCH (17:06)
[2017-12-26] MEDS: METOPROLOL SUCCINATE 25 MG TAB.SR.24H PO SCH (17:18)
--- NOTE | 2017-12-26 18:36 | NUR ---
RN NOTES PATIENT A/OX2-3,VERBALLY RESPONSIVE, BREATHING EVEN AND UNLABORED, NO SOB NOTED, PIV ON RFA PATENT AND NS INFUSING AND TOLERATING WELL, PATIENT TURNED AND REPOSITIONED EVERY 2 HOURS, MOHIT. HEELS OFFLOADED, F/C LEAKING, RE-CHECKED LOO AND SEEMS TO BE IN PLACED, REMOVED BALLOON AND ADVANCED IN, THEN BALLOON RE-INFLATED WITH 10CC OF NS, F/C PATENT AND DRAINING WITH MINIMAL URINE, PATIENT SEEN BY JARED AND DR. ROCHA, RECEIVED ORDER FOR LEFT HIP SURGERY TOMORROW AT 7AM, PATIENT'S FAMILY AWARE, SON ALESHIA SIGNED CONSENT. NEEDS ATTENDED AND MET, CALL LIGHT WITHIN REACH, WILL ENDORSE TO TRUCK OPERATOR FOR C Addendum: 12/26/17 at 1853 by BETSY LAND RN ADDENDUM: WILL ENDORSE TO TRUCK OPERATOR FOR CONTINUITY OF CARE.
--- NOTE | 2017-12-26 19:05 | NUR ---
RN OPENING NOTES RECEIVED PT IN BED, AWAKE, ALERT AND ORIENTED, NOTED WITH NO FACIAL GRIMACING, BREATHING EVEN AND UNLABORED, NO SOB NOTED. IV HYDRATION INFUSING WELL VIA IVF ON RAC G# 18. LOO CATHETER BAG NOTED WITH 25CC OUTPUT OF DIAMOND COLORED URINE. SUGGESTION CLERK AT BEDSIDE FOR BLOOD DRAW FOR SCHEDULED SURGERY IN THE AM. ALL PATIENT'S NEEDS ATTENDED TO AT THIS TIME, BED IN LOW POSITION AND LOCKED IN PLACE. WILL CONTINUE TO MONITOR PT.
[2017-12-26 19:34] LABS: CALCIUM, SERUM 9.3 mg/dL (8.5-10.1); CARBON DIOXIDE 21 mmol/L (21-32); CHLORIDE 102 mmol/L (98-107); CREATININE 1.6 mg/dL (0.6-1.3); GLUCOSE 222 mg/dL (74-106); POTASSIUM 3.7 mmol/L (3.5-5.1); SODIUM SERUM 137 mmol/L (136-145); UREA NITROGEN, BLOOD 43 mg/dL (7-18)
[2017-12-26] MEDS: MORPHINE SULFATE INJ 2 MG/ML DISP.SYRIN IV PRN (20:11)
[2017-12-26 20:37] VITALS: BP 178/93
[2017-12-26] MEDS: TRAZODONE 50 MG TABLET PO SCH (21:32)
[2017-12-26] MEDS: ATORVASTATIN 40 MG TABLET PO SCH (21:32)
[2017-12-26] MEDS ORDERED: ZOLPIDEM TARTRATE 5 MG TABLET PO PRN (22:00)
[2017-12-26] MEDS ORDERED: TEMAZEPAM 15 MG CAPSULE PO PRN (22:00)
[2017-12-26] MEDS ORDERED: CLONIDINE HCL 0.1 MG TABLET PO ONE (23:30)
--- NOTE | 2017-12-27 01:45 | NUR ---
RN NOTES NOTED PT'S IV LINE TO BE INFILTRATED, ATTEMPTED TO INSERT IV LINE WITH THE HELP OF ACCU-VEIN BUT WAS STILL UNSUCCESSFUL.
--- NOTE | 2017-12-27 02:00 | NUR ---
RN NOTE ATTEMPTED TO INSERT IV PERIPHERAL LINE WITH THE HELP OF ANOTHER RN BUT WAS STILL UNSUCCESSFUL.
--- NOTE | 2017-12-27 02:45 | NUR ---
RN NOTES NEW IV PERIPHERAL LINE G#22 INSERTED ON PT'S KIRA BY SERVICE ADVOCATE CONTACT, ED. NOTED WITH GOOD BLOOD RETURN, FLUSHED WITH 10 CC NS, PATENT. IV HYDRATION RECONNECTED, INFUSING WELL.
--- NOTE | 2017-12-27 02:50 | NUR ---
RN NOTES OBTAINED NEW ORDER FOR MIDLINE INSERTION FROM DR. GAYLE, WITH THE APPROVAL OF NURSING RESIDENTIAL COORDINATOR, PHILIPPE. ALL ORDERS NOTED AND CARRIED OUT.
[2017-12-27] MEDS: IV NS 0.9% 1,000 ML IV PRN ×2 (04:47→22:02)
[2017-12-27 06:00] VITALS: BP 100/50
[2017-12-27] MEDS ORDERED: ANESTHESIA TRAY IN PYXIS 1 EA TRAY MC ONE (06:46)
[2017-12-27] MEDS ORDERED: BUPIVACAINE 0.5 % PF 150 MG/30 ML VIAL ONE (06:47)
[2017-12-27 06:49] LABS: BASOPHILS % (AUTO) 0.4 % (0.0-2.0); EOSINOPHILS % (AUTO) 0.1 % (0.0-6.0); HEMATOCRIT 31 % (33-45); HEMOGLOBIN 10.3 g/dL (11.5-14.8); LYMPHOCYTES # (AUTO) 1.4 /CMM (0.8-4.8); LYMPHOCYTES % (AUTO) 11.4 % (20.0-44.0); MEAN CORPUSCULAR HEMOGLOBIN 29 PG (26.0-33.0); MEAN CORPUSCULAR HGB CONC 34 g/dl (31.0-36.0); MEAN CORPUSCULAR VOLUME 86 fL (82-100); MONOCYTES # (AUTO) 0.9 /CMM (0.1-1.30); MONOCYTES % (AUTO) 7.2 % (2.0-12.0); NEUTROPHILS # (AUTO) 9.7 /CMM (1.8-8.9); NEUTROPHILS % (AUTO) 80.9 % (43.0-81.0); PLATELET COUNT (AUTO) 234 /CMM (150-450); RDW COEFFICIENT OF VARIATION 16.1 (11.5-15.0); RED BLOOD CELL COUNT(AUTO) 3.54 MIL/uL (4.0-5.2); WHITE BLOOD COUNT (AUTO) 11.9 K/uL (4.3-11.0)
[2017-12-27] MEDS ORDERED: BACITRACIN 50000 UNITS/VIAL ONE (06:52)
--- NOTE | 2017-12-27 07:07 | NUR ---
RN CLOSING NOTES PATIENT SEEN AND EXAMINED BY DR. AGUSTIN FOR CARDIAC CLEARANCE. PATIENT IN BED, ASLEEP BUT EASILY AROUSABLE. ALL PATIENT'S NEEDS ATTENDED TO THROUGHOUT THE SHIFT. LOO CATHETER WITH MINIMAL LEAKAGE, DRAINING WITH YELLOW URINE. NO SOB, BREATHING EVEN AND UNLBAORED. PT ON IVF ORDERED ON KIRA. PLACED PATIENT'S BED IN LOW POSITION AND LOCKED IN PLACE. WILL ENDORSE TO AM SHIFT NURSE FOR CONTINUITY OF CARE.
--- NOTE | 2017-12-27 07:10 | NUR ---
MS RN OPENING NOTE RECEIVED PATIENT IN BED. SLEEPING, EASILY AROUSED WITH VERBAL STIMULI. RESPONDS VERBALLY BUT SPEECH IS LITTLE UNCLEAR AND PATIENT IS LETHARGIC. KOSOVAN SPEAKING ONLY. ON ROOM AIR. TOLERATING WELL. IN NO APPARENT DISTRESS OR DISCOMFORT AT THIS TIME. PATIENT WITH LOO CATHETER, DRAINING CLEAR YELLOW URINE. LEFT UPPER ARM IVC 22G, RUNNING FLUIDS AT 75ML/HR. PATENT AND INTACT. OR TEAM IS AT BEDSIDE TO BUSINESS INTELLIGENCE ARCHITECT THE PATIENT FOR SURGERY. CONSENT SIGNED AND IN CHART, NPO SINCE MIDNIGHT. PATIENT KEPT CLEAN AND COMFORTABLE, ALL NEEDS ATTENDED. SAFETY MEASURES IN PLACE, BED IN LOW LOCKED POSITION, SIDE RAILS UP X2, CALL LIGHT WITHIN EASY REACH. WILL CONTINUE TO MONITOR.
--- NOTE | 2017-12-27 07:15 | NUR ---
PATIENT WAS TAKEN TO THE OR FOR SURGERY. IS STABLE AND IS NOT IN DISTRESS.
--- NOTE | 2017-12-27 07:15 | NUR ---
RN NOTES PATIENT PICKED UP BY OR STAFF FOR SURGERY. LEFT UNIT VIA GURNEY IN STABLE CONDITION.
[2017-12-27 07:18] LABS: ALANINE AMINOTRANSFERASE 16 U/L (12-78); ALKALINE PHOSPHATASE 37 U/L (46-116); ASPARTATE AMINOTRANSFERASE 12 U/L (15-37); BILIRUBIN,TOTAL 0.7 mg/dL (0.2-1.0); CALCIUM, SERUM 8.5 mg/dL (8.5-10.1); CARBON DIOXIDE 24 mmol/L (21-32); CHLORIDE 101 mmol/L (98-107); CREATININE 1.2 mg/dL (0.6-1.3); GLUCOSE 162 mg/dL (74-106); MAGNESIUM 1.7 mg/dL (1.8-2.4); POTASSIUM 3.1 mmol/L (3.5-5.1); SODIUM SERUM 137 mmol/L (136-145); TOTAL PROTEIN, SERUM 6.2 g/dL (6.4-8.2); UREA NITROGEN, BLOOD 42 mg/dL (7-18)
[2017-12-27 07:23] LABS: CHOLESTEROL 93 mg/dL (<200); HDL CHOLESTEROL 53 mg/dL (40-60); LDL 31 mg/dL (0-99); TRIGLYCERIDES 74 mg/dL (30-150)
[2017-12-27] MEDS: MAGNESIUM OXIDE 400 MG TABLET PO SCH (09:00)
[2017-12-27] MEDS: NIFEdipine XL (30MG) 30 MG TAB PO SCH (09:00)
[2017-12-27] MEDS: BETHANECHOL CHLORIDE (25 MG) 25 MG TABLET PO SCH ×3 (09:00→16:50)
[2017-12-27] MEDS: LISINOPRIL (20MG) 20 MG TABLET PO SCH ×2 (09:00→17:00)
[2017-12-27] MEDS: MEMANTINE HCL 5 MG TABLET PO SCH (09:00)
[2017-12-27] MEDS ORDERED: HYDROCHLOROTHIAZIDE 25 MG TABLET PO SCH (09:00)
[2017-12-27] MEDS: METOPROLOL SUCCINATE 25 MG TAB.SR.24H PO SCH ×2 (09:00→17:00)
[2017-12-27] MEDS: DONEPEZIL 5 MG TABLET PO SCH (09:00)
[2017-12-27] MEDS ORDERED: HYDROMORPHONE INJ 2 MG/ML DISP.SYRIN ONE (10:09)
--- NOTE | 2017-12-27 10:50 | NUR ---
PATIENT WAS BROUGHT BACK FROM THE OR. STABLE. VITAL SIGNS STABLE: BP 131/87, HR: 81, SPO2: 100% ON ROOM AIR, TEMP: 98.3. WILL CARRY OUT POS-OPERATIVE ORDERS AND CONTINUE TO MONITOR.
[2017-12-27] MEDS: POTASSIUM CL. PREMIX PERIPHER. 50 ML IV SCH ×4 (11:05→18:17)
[2017-12-27] MEDS: Magnesium 1GM/D5W 100ML PREMIX 100 ML IV SCH ×2 (12:26→15:12)
[2017-12-27] MEDS: TRAMADOL HCL 50 MG TABLET PO PRN (15:12)
[2017-12-27 16:00] VITALS: BP 87/58
[2017-12-27] MEDS: MORPHINE SULFATE INJ 2 MG/ML DISP.SYRIN IV PRN (16:50)
[2017-12-27] MEDS: CALCIUM CARB 600MG /VIT D 1 EACH TABLET PO SCH (16:50)
[2017-12-27] MEDS: CEFAZOLIN SODIUM 1 GM in IV SODIUM CHLORIDE 0.9% 50 ML IV SCH (16:52)
--- NOTE | 2017-12-27 17:00 | NUR ---
DR. ANDREZ DICKERSON AT BEDSIDE. PATIENT HAS FACIAL GRIMACING AND IS IN DISCOMFORT. TRAMADOL GIVEN AROUND 1530. DR DICKERSON REQUESTED TO GIVE THE PATIENT MORE STRONGER PAIN MEDICATION SUCH THE PRESCRIBED MORPHINE. NOTIFIED THE DR THAT PATIENT'S BP HAS BEEN RUNNING LOW IN 90S/50S. VERBAL ORDER RECEIVED TO ADMINISTER MORPHINE AND CONTROL THE PAIN AND GIVE BOLUS 500CC OF FLUIDS TO THE PATIENT. WILL CARRY OUT ORDERS AND CONTINUE TO MONITOR.
--- NOTE | 2017-12-27 18:00 | NUR ---
PATIENT'S BP CONTINUE TO STAY IN LOW 90S AND HIGH 80S. 500CC BOLUS GIVEN. ELEVATED EXTREMITIES, LOWERED HOB. WILL CONTINUE TO MONITOR.
[2017-12-27] MEDS ORDERED: IV NS 0.9% 500 ML IV ONE ×2 (18:30→23:00)
--- NOTE | 2017-12-27 19:56 | NUR ---
MS RN CLOSING NOTE PATIENT IN BED. SLEEPING, EASILY AROUSED WITH VERBAL STIMULI. RESPONDS VERBALLY BUT SPEECH IS LITTLE UNCLEAR AND PATIENT IS LETHARGIC. TRISTANIAN SPEAKING ONLY. ON ROOM AIR. TOLERATING WELL. IN NO APPARENT DISTRESS OR DISCOMFORT AT THIS TIME. PATIENT WITH LOO CATHETER, DRAINING CLEAR YELLOW URINE. LEFT UPPER ARM IVC 22G, RUNNING FLUIDS AT 75ML/HR. RIGHT WRIST 20G SL. PATENT AND INTACT. PATIENT IS STABLE. DENIES PAIN AT THIS TIME. PATIENT KEPT CLEAN AND COMFORTABLE, ALL NEEDS ATTENDED. SAFETY MEASURES IN PLACE, BED IN LOW LOCKED POSITION, SIDE RAILS UP X2, CALL LIGHT WITHIN EASY REACH. WILL ENDORSE TO PM NURSE FOR RONALDO.
[2017-12-27 20:00] VITALS: BP 90/56
[2017-12-27 21:45] VITALS: BP 97/54
[2017-12-27] MEDS: ATORVASTATIN 40 MG TABLET PO SCH (22:00)
[2017-12-27] MEDS: TRAZODONE 50 MG TABLET PO SCH (22:00)
[2017-12-27 22:38] VITALS: BP 82/49
--- NOTE | 2017-12-27 22:38 | NUR ---
MS RN NOTES PT'S BP 82/49, HR 90. NOTIFIED DR. SURESH. WITH NEW ORDERS MADE. ORDERS NOTED AND CARRIED OUT. WILL CONTINUE TO MONITOR.
[2017-12-27 23:30] VITALS: BP 109/75
[2017-12-28] MEDS: CEFAZOLIN SODIUM 1 GM in IV SODIUM CHLORIDE 0.9% 50 ML IV SCH ×2 (00:33→08:29)
[2017-12-28] MEDS ORDERED: CEFAZOLIN 1 GM ONE (01:28)
[2017-12-28] MEDS: MORPHINE SULFATE INJ 2 MG/ML DISP.SYRIN IV PRN ×2 (04:37→12:36)
[2017-12-28] MEDS: IV NS 0.9% 1,000 ML IV PRN ×3 (05:58→21:37)
--- NOTE | 2017-12-28 06:40 | NUR ---
MS RN NOTES AWAKE & RESPONSIVE. NOT IN ANY DISTRESS. NO SOB NOTED. JOI ANY PAIN OR DISCOMFORT AT THIS TIME. WITH IVF INFUSING WELL. AM CARE DONE WITH F/C DRAINING TO YELLOWISH OUTPUT MODERATE IN AMOUNT. MONITORED ACCORDINGLY. CALL LIGHT WITHIN REACH. BED IN LOWEST POSITION. SR UP X 3 FOR SAFETY WITH BED ALARM ON. WILL ENDORSE TO NEXT SHIFT.
--- NOTE | 2017-12-28 07:25 | NUR ---
MS/RN OPENING NOTE PATIENT IS RECEIVED IN BED AND AWAKE. ALERT AND ORIENTED X1. REDIRECTION AND REORIENTATION PROVIDED NEEDED. PATIENT IS BELARUSIAN SPEAKER. DENIES PAIN AT THIS TIME. RESPIRATION REGULAR AND UNLABORED. DENIES SOB AT THIS TIME. LOO CATH IN PLACE AND DRAINING CLEAR, YELLOW COLOR URINE. RIGHT HAND G 20 PATENT AND IV FLUIDS INFUSING WITH NO S/S INFILTRATION. BED LOW AND LOCKED. SIDE RAILS UP X3. CALL LIGHT WITHIN REACH. WILL CONTINUE TO MONITOR.
[2017-12-28] MEDS: MEMANTINE HCL 5 MG TABLET PO SCH (08:38)
[2017-12-28] MEDS: CALCIUM CARB 600MG /VIT D 1 EACH TABLET PO SCH ×2 (08:38→16:38)
[2017-12-28] MEDS: MAGNESIUM OXIDE 400 MG TABLET PO SCH (08:38)
[2017-12-28] MEDS: BETHANECHOL CHLORIDE (25 MG) 25 MG TABLET PO SCH ×3 (08:38→16:38)
[2017-12-28] MEDS: METOPROLOL SUCCINATE 25 MG TAB.SR.24H PO SCH ×2 (08:39→16:38)
[2017-12-28] MEDS: DONEPEZIL 5 MG TABLET PO SCH (08:39)
[2017-12-28] MEDS: NIFEdipine XL (30MG) 30 MG TAB PO SCH (08:39)
[2017-12-28] MEDS: TRAMADOL HCL 50 MG TABLET PO PRN (08:42)
[2017-12-28 08:50] LABS: BASOPHILS % (AUTO) 0.1 % (0.0-2.0); EOSINOPHILS % (AUTO) 0.1 % (0.0-6.0); HEMATOCRIT 28 % (33-45); HEMOGLOBIN 8.7 g/dL (11.5-14.8); LYMPHOCYTES # (AUTO) 1.3 /CMM (0.8-4.8); LYMPHOCYTES % (AUTO) 10.2 % (20.0-44.0); MEAN CORPUSCULAR HEMOGLOBIN 28 PG (26.0-33.0); MEAN CORPUSCULAR HGB CONC 32 g/dl (31.0-36.0); MEAN CORPUSCULAR VOLUME 89 fL (82-100); MONOCYTES # (AUTO) 1.1 /CMM (0.1-1.30); MONOCYTES % (AUTO) 8.5 % (2.0-12.0); NEUTROPHILS # (AUTO) 10.5 /CMM (1.8-8.9); NEUTROPHILS % (AUTO) 81.1 % (43.0-81.0); PLATELET COUNT (AUTO) 181 /CMM (150-450); RDW COEFFICIENT OF VARIATION 16.6 (11.5-15.0); RED BLOOD CELL COUNT(AUTO) 3.08 MIL/uL (4.0-5.2)
[2017-12-28 09:13] LABS: CARBON DIOXIDE 20 mmol/L (21-32); CHLORIDE 108 mmol/L (98-107); GLUCOSE 161 mg/dL (74-106); POTASSIUM 4.3 mmol/L (3.5-5.1); SODIUM SERUM 138 mmol/L (136-145); UREA NITROGEN, BLOOD 32 mg/dL (7-18)
[2017-12-28 11:30] LABS: IRON, SERUM 26 ug/dl (50-175); TOTAL IRON BINDING CAPACITY 174 ug/dl (250-450)
[2017-12-28 11:59] LABS: FERRITIN 285 ng/mL (8-388)
[2017-12-28 14:16] VITALS: BP 126/64
[2017-12-28] MEDS: RIVAROXABAN 10 MG TABLET PO SCH (16:39)
--- NOTE | 2017-12-28 18:39 | NUR ---
MS/RN CLOSING NOTE PATIENT ALERT AND ORIENTED X1. REDIRECTIONS AND REMINDERS GIVEN NEEDED. DENIES SOB. RESPIRATION REGULAR AND UNLABORED. DENIES PAIN. PATIENT IN NO APPARENT DISTRESS. RIGHT UPPER ARM MIDLINE PATENT AND IV INFUSING WITH NO S/S INFILTRATION. PATIENT HAS LOO CATH WHICH IS DRAINING FREELY AND NOTED CLEAR, YELLOW COLOR URINE. NO BLADDER DISTENSION NOTED. GOOD AND GENTLE SKIN CARE RENDERED. KEPT CLEAN, DRY AND COMFORTABLE. TURNED AND REPOSITIONED Q2HR AND NEEDED. BED LOW AND LOCKED. SIDE RAILS UP X3. CALL LIGHT WITHIN REACH. WILL ENDORSE TO STORAGE GARAGE MANAGER.
[2017-12-28 20:00] VITALS: BP 88/46
[2017-12-28] MEDS: ATORVASTATIN 40 MG TABLET PO SCH (21:12)
[2017-12-28 21:25] VITALS: BP 111/61
[2017-12-28] MEDS: TRAZODONE 50 MG TABLET PO SCH (21:38)
[2017-12-29] MEDS: IV NS 0.9% 1,000 ML IV PRN (06:16)
--- NOTE | 2017-12-29 06:22 | NUR ---
MS RN NOTES AWAKE & RESPONSIVE. NOT IN ANY DISTRESS. NO SOB NOTED. DENIES ANY PAIN OR DISCOMFORT AT THIS TIME. WITH IVF INFUSING WELL. AM CARE DONE WITH F/C DRAINING TO YELLOWISH OUTPUT MODERATE IN AMOUNT. MONITORED ACCORDINGLY. CALL LIGHT WITHIN REACH. BED IN LOWEST POSITION. SR UP X 3 FOR SAFETY WITH BED ALARM ON. WILL ENDORSE TO NEXT SHIFT.
--- NOTE | 2017-12-29 07:20 | NUR ---
MS/RN OPENING NOTE PATIENT IS RECEIVED IN BED AND AWAKE. PATIENT ALERT AND ORIENTED X1 AND SHE IS BULGARIAN SPEAKER. BJ MIDLINE G18 PATENT AND IV FLUID IS INFUSING WITH NO S/S INFILTRATION. PATIENT INCONTINENT ON BOWEL AND BLADDER. BED LOW AND LOCKED. SIDE RAILS UP X3. CALL LIGHT WITHIN REACH. WILL CONTINUE TO MONITOR.
[2017-12-29 07:57] LABS: BASOPHILS % (AUTO) 0.1 % (0.0-2.0); EOSINOPHILS % (AUTO) 1.1 % (0.0-6.0); HEMATOCRIT 24 % (33-45); HEMOGLOBIN 7.9 g/dL (11.5-14.8); LYMPHOCYTES # (AUTO) 1.5 /CMM (0.8-4.8); LYMPHOCYTES % (AUTO) 12.1 % (20.0-44.0); MEAN CORPUSCULAR HEMOGLOBIN 29 PG (26.0-33.0); MEAN CORPUSCULAR HGB CONC 33 g/dl (31.0-36.0); MEAN CORPUSCULAR VOLUME 86 fL (82-100); MONOCYTES # (AUTO) 0.7 /CMM (0.1-1.30); NEUTROPHILS # (AUTO) 9.9 /CMM (1.8-8.9); NEUTROPHILS % (AUTO) 80.7 % (43.0-81.0); PLATELET COUNT (AUTO) 227 /CMM (150-450); RDW COEFFICIENT OF VARIATION 16.3 (11.5-15.0); RED BLOOD CELL COUNT(AUTO) 2.76 MIL/uL (4.0-5.2); WHITE BLOOD COUNT (AUTO) 12.2 K/uL (4.3-11.0)
[2017-12-29 08:00] VITALS: BP 138/71
[2017-12-29 08:12] LABS: ALANINE AMINOTRANSFERASE 15 U/L (12-78); ALBUMIN 2.4 g/dL (3.4-5.0); ALKALINE PHOSPHATASE 45 U/L (46-116); ASPARTATE AMINOTRANSFERASE 24 U/L (15-37); BILIRUBIN,TOTAL 0.5 mg/dL (0.2-1.0); CALCIUM, SERUM 8.2 mg/dL (8.5-10.1); CARBON DIOXIDE 25 mmol/L (21-32); CHLORIDE 104 mmol/L (98-107); CREATININE 0.9 mg/dL (0.6-1.3); GLUCOSE 166 mg/dL (74-106); MAGNESIUM 1.6 mg/dL (1.8-2.4); PHOSPHORUS 1.1 mg/dL (2.5-4.9); POTASSIUM 3.6 mmol/L (3.5-5.1); SODIUM SERUM 138 mmol/L (136-145); TOTAL PROTEIN, SERUM 5.8 g/dL (6.4-8.2); UREA NITROGEN, BLOOD 22 mg/dL (7-18)
[2017-12-29] MEDS: MEMANTINE HCL 5 MG TABLET PO SCH (08:31)
[2017-12-29] MEDS: MAGNESIUM OXIDE 400 MG TABLET PO SCH (08:31)
[2017-12-29] MEDS: CALCIUM CARB 600MG /VIT D 1 EACH TABLET PO SCH (08:32)
[2017-12-29] MEDS: DONEPEZIL 5 MG TABLET PO SCH (08:32)
[2017-12-29] MEDS: BETHANECHOL CHLORIDE (25 MG) 25 MG TABLET PO SCH ×3 (08:32→17:10)
[2017-12-29] MEDS: METOPROLOL SUCCINATE 25 MG TAB.SR.24H PO SCH ×2 (08:32→17:00)
[2017-12-29] MEDS: NIFEdipine XL (30MG) 30 MG TAB PO SCH (08:32)
[2017-12-29] MEDS: TRAMADOL HCL 50 MG TABLET PO PRN (08:34)
[2017-12-29 09:08] VITALS: BP 138/71
--- NOTE | 2017-12-29 09:17 | NUR ---
WOUND CARE CONSULT: PT PRESENTS WITH FRAGILE SKIN AND BRUISING TO ARMS, RT LATERAL FOOT DTI (INTACT) AND DUSKY COLOR TO FEET AND HEELS (BLANCHABLE), PRESENT ON ADMISSION. INCONTINENCE ASSOCIATED SKIN IRRITATION TO GLUTEAL CREASE NOTED. RECOMMENDATIONS MADE FOR WOUND CARE AND SKIN PROTECTION. DISCUSSED WITH NURSING STAFF. ALL SKIN PROTECTION MEASURES IN PLACE. PT ON FIRST STEP MATTRESS. WILL SEE PRN. CURRENT BRIGHT SCORE IS 14. Addendum: 12/29/17 at 0921 by KIKO MEDINA WNDNU Amended: Links added.
--- NOTE | 2017-12-29 09:48 | NUR ---
MS/RN NOTE DR SHEPPARD IS MADE AWARE OF HGB RESULT OF 7.9 AND PER MD NO NEW ORDER.
[2017-12-29] MEDS ORDERED: NEUTRA PHOS 1 POWD.PACKET PO SCH (11:30)
[2017-12-29] MEDS: Magnesium 1GM/D5W 100ML PREMIX 100 ML IV SCH ×2 (11:35→13:24)
[2017-12-29] MEDS: POTASSIUM CHLORIDE 20 MEQ TAB.PRT.SR PO SCH ×2 (11:54→13:24)
[2017-12-29 12:19] VITALS: BP 126/72
[2017-12-29] MEDS ORDERED: RIVA10TA PO (12:25)
[2017-12-29] MEDS ORDERED: ERGOCALCIFEROL (VITAMIN D 2) 50,000 UNIT CAPSULE PO SCH (14:00)
--- NOTE | 2017-12-29 15:15 | NUR ---
MS/RN NOTE PER DR SHEPPARD NO BLOOD TRANSFUSION. DR SHEPPARD CANCELED DR HARRIS ORDER OF RBC-NO ACTIVE BLEEDING.
[2017-12-29 16:56] VITALS: BP 105/58
[2017-12-29] MEDS: RIVAROXABAN 10 MG TABLET PO SCH (17:10)
--- NOTE | 2017-12-29 17:37 | NUR ---
MS/RN CLOSING NOTE PATIENT ALERT AND ORIENTED X1. DENIES SOB. DENIES PAIN. RESPIRATION REGULAR AND UNLABORED. PATIENT IN NO APPARENT DISTRESS. DISCHARGE INSTRUCTIONS GIVEN TO RECEIVING NURSE ORIANA. PATENT IS PICKED UP ON A GURNEY BY AN AMBULANCE. PATIENT LEFT THE HOSPITAL IN STABLE CONDITION.
[2017-12-29 20:00] VITALS: BP 144/103
[2017-12-30 13:12] LABS: CALCITRIOL VIT D,1, 25 DIHYDRO 21.3 pg/mL (19.9-79.3)
== END 2017-12-29 20:00 | DRG 480 ==
LOC: ER 06:07 → TELE1 07:52 → MEDSG2 09:32
PROVIDERS: ADMIT Nurse Practitioner Acute Care; ATTEND Nurse Practitioner Acute Care
PROC: 0QS704Z Reposition Left Upper Femur with Internal Fixation Device, Open Approach (ICD-10-PCS; principal; 2017-12-27 07:30)
PROC: 05H533Z Insertion of Infusion Device into Right Subclavian Vein, Percutaneous Approach (ICD-10-PCS; 2017-12-28)
PROC: B546ZZA Ultrasonography of Right Subclavian Vein, Guidance (ICD-10-PCS; 2017-12-28)
DX: S72.142A Displaced intertrochanteric fracture of left femur, initial encounter for closed fracture (principal); N17.0 Acute kidney failure with tubular necrosis; D68.59 Other primary thrombophilia; I12.9 Hypertensive chronic kidney disease with stage 1 through stage 4 chronic kidney disease, or unspecified chronic kidney disease; I48.0 Paroxysmal atrial fibrillation; W19.XXXA Unspecified fall, initial encounter; Y92.000 Kitchen of unspecified non-institutional (private) residence as the place of occurrence of the external cause; N18.3 Chronic kidney disease, stage 3 (moderate); Z86.73 Personal history of transient ischemic attack (TIA), and cerebral infarction without residual deficits; Z79.899 Other long term (current) drug therapy; Z79.84 Long term (current) use of oral hypoglycemic drugs; Z79.82 Long term (current) use of aspirin; Z79.01 Long term (current) use of anticoagulants; E11.22 Type 2 diabetes mellitus with diabetic chronic kidney disease; F03.90 Unspecified dementia, unspecified severity, without behavioral disturbance, psychotic disturbance, mood disturbance, and anxiety; I25.10 Atherosclerotic heart disease of native coronary artery without angina pectoris; E78.5 Hyperlipidemia, unspecified; F41.9 Anxiety disorder, unspecified; I25.2 Old myocardial infarction; E83.42 Hypomagnesemia; D72.829 Elevated white blood cell count, unspecified; E83.39 Other disorders of phosphorus metabolism
CPT/HCPCS: 36415; 71045-TC; 72170-TC; 73502; 73564-TC; 80048-TC; 80053-TC; 80061-TC; 80076-TC; 82306; 82652; 82728-TC; 82962-TC; 83540-TC; 83735-TC; 83970; 84100-TC; 84484-TC; 85025-TC; 85730-TC; 86850-TC; 87081-TC; 93307-TC; 97110-TC; 97116-TC; 97530-TC; A4216; J0690; J1170; J2270; J3475; J3480; J3490; J7030; J7040; J7050; Z7610

== ENCOUNTER 2018-03-06 16:39 | Inpatient (IN) | payer MEDICARE, OTHER ==
[~2018-03-06] VITALS: Ht 147.3 cm; Wt 54.0 kg
[~2018-03-06 16:39] MED LIST changes: -ASPI-1152 PO; +CLON0.5T12 PO; -LORA0.5T PO; +METF-440 PO; -METF500T6 PO; +METOPROLOL SUCCINATE 25 MG TAB.SR.24H PO SCH; +TEMA15CA PO; +TRAZ-182 PO; -ZOLP5TAB8 PO
--- NOTE | 2018-03-06 16:45 | NUR ---
DAWIT FROM [facility]. PATIENT IS A/OX 2, BREATHING EVEN AND UNLABORED. NO SOB, NAD, VITALS STABLE. SAFETY AND COMFORT MEASURES IN PLACE. AWAITING MD ORDERS.
[2018-03-06] MEDS ORDERED: HALOPERIDOL 1 MG TABLET PO ONE (17:00)
[2018-03-06 17:20] LABS: BASOPHILS # (AUTO) 0.1 /CMM (0.0-0.2); EOSINOPHILS % (AUTO) 4.1 % (0.0-6.0); HEMATOCRIT 33 % (33-45); HEMOGLOBIN 11.1 g/dL (11.5-14.8); LYMPHOCYTES # (AUTO) 2.2 /CMM (0.8-4.8); LYMPHOCYTES % (AUTO) 25.8 % (20.0-44.0); MEAN CORPUSCULAR HGB CONC 34 g/dl (31.0-36.0); MEAN CORPUSCULAR VOLUME 83 fL (82-100); MONOCYTES # (AUTO) 0.7 /CMM (0.1-1.30); MONOCYTES % (AUTO) 7.9 % (2.0-12.0); NEUTROPHILS # (AUTO) 5.2 /CMM (1.8-8.9); NEUTROPHILS % (AUTO) 61.2 % (43.0-81.0); PLATELET COUNT (AUTO) 318 /CMM (150-450); RDW COEFFICIENT OF VARIATION 15.1 (11.5-15.0); RED BLOOD CELL COUNT(AUTO) 3.91 MIL/uL (4.0-5.2); WHITE BLOOD COUNT (AUTO) 8.6 K/uL (4.3-11.0)
[2018-03-06] MEDS ORDERED: HALOPERIDOL 1 MG TABLET ONE (17:21)
--- NOTE | 2018-03-06 17:25 | NUR ---
MEDICATED PATIENT PER MD ORDERS.
[2018-03-06 17:27] LABS: CALCIUM, SERUM 8.9 mg/dL (8.5-10.1); CARBON DIOXIDE 27 mmol/L (21-32); CHLORIDE 101 mmol/L (98-107); CREATININE 1.2 mg/dL (0.6-1.3); GLUCOSE 135 mg/dL (74-106); POTASSIUM 3.8 mmol/L (3.5-5.1); SODIUM SERUM 136 mmol/L (136-145); UREA NITROGEN, BLOOD 28 mg/dL (7-18)
[2018-03-06] MEDS ORDERED: MULT-447 PO (17:28)
[2018-03-06] MEDS ORDERED: NA P133E RC (17:28)
[2018-03-06] MEDS ORDERED: DOCU-141 PO (17:28)
[2018-03-06] MEDS ORDERED: MAGN400O6 PO (17:28)
[2018-03-06] MEDS ORDERED: AMIN30LI4 PO (17:28)
[2018-03-06] MEDS ORDERED: SENN-167 PO (17:28)
[2018-03-06] MEDS ORDERED: ERGO500014 PO (17:28)
[2018-03-06] MEDS ORDERED: LORA0.5T PO ×2 (17:28)
[2018-03-06] MEDS ORDERED: DIVA125T2 PO (17:28)
[2018-03-06] MEDS ORDERED: CHOL400T11 PO (17:28)
[2018-03-06] MEDS ORDERED: BISA10SU8 RC (17:28)
[2018-03-06] MEDS ORDERED: CALC-903 PO (17:28)
[2018-03-06] MEDS ORDERED: ASCO500T9 PO (17:28)
[2018-03-06 17:29] LABS: ALCOHOL, BLOOD < 3 mg/dL (0-0)
--- NOTE | 2018-03-06 17:44 | NUR ---
NO NEED TO OBTAINE URINE PER DR. SEQUEIRA
--- NOTE | 2018-03-06 18:53 | NUR ---
REPORT GIVEN TO KAMERON ALMONTE FOR RONALDO UPON ADMISSION.
--- NOTE | 2018-03-06 19:09 | NUR ---
PATIENT TRANSPORTED TO [facility] VIA STRETCHER. RNKAMERON TO PROVIDE RONALDO.
--- NOTE | 2018-03-06 19:10 | NUR ---
ADMITTED AN 82 Y/O FEMALE FROM [facility], ON 5150 HOLD GD AND DTO, PER HOLD , PATIENT INCREASE AGITATION AND COMBATIVE. PATIENT ADMITTING DX. PSYCHOSIS AND MEDICAL DX. OF LEFT HIP FRACTURE, HYPERTENSION, DM AND AFIB. UPON FACE TO FACE EVALUATION, PATIENT APPEARED ALERT AND ORIENTED X 1, CONFUSED, DISORGANIZED, DISORIENTED, RESTLESS, COMBATIVE BUT REDIRECTABLE. SON AT BEDSIDE AND SIGNED PAPER WORKS. HEAD TO TOE ASSESSMENT DONE. SKIN INTACT. POLICIES AND PROCEDURES EXPLAINED TO THE SON. BELONGINGS COLLECTED AND INSPECTED FOR CONTRABAND. NOTIFIED DR. GODINEZ AND DR. ARGUELLO TO RECONCILE MEDICATION AND MEDICATION VERIFICATION. WILL CONTINUE TO MONITOR [id number] FOR SAFETY
[2018-03-06 20:00] VITALS: BP 157/94
[2018-03-06] MEDS ORDERED: MAG HYDROX/AL HYDROX/SIMETH 30 ML UDC PO PRN (20:00)
[2018-03-06] MEDS ORDERED: MAGNESIUM HYDROXIDE 30 ML UDC PO PRN ×2 (20:00→20:30)
[2018-03-06] MEDS ORDERED: ACETAMINOPHEN 325 MG TABLET PO PRN (20:00)
[2018-03-06] MEDS: MAGNESIUM OXIDE 400 MG TABLET PO SCH (20:30)
[2018-03-06] MEDS: NIFEdipine XL (30MG) 30 MG TAB PO SCH (20:30)
[2018-03-06] MEDS: HYDROCHLOROTHIAZIDE 25 MG TABLET PO SCH (20:30)
[2018-03-06] MEDS ORDERED: BISACODYL SUPP (10 MG) 10 MG/SUPP.RECT SUPP.RECT RC PRN (20:30)
[2018-03-06] MEDS ORDERED: NA PHOS,M-B/NA PHOS,DI-BA 1 EA ENEMA RC PRN (20:30)
[2018-03-06] MEDS: PROSOURCE / PROSTAT (PYXIS) 30 ML UDC PO SCH (21:00)
[2018-03-06] MEDS: POTASSIUM CHLORIDE 10 MEQ TABLET.SA PO SCH (21:00)
[2018-03-06] MEDS: DIVALPROEX SODIUM 125 MG TABLET.DR PO SCH (22:12)
[2018-03-06] MEDS: ATORVASTATIN 40 MG TABLET PO SCH (22:12)
[2018-03-06] MEDS: LISINOPRIL (20MG) 20 MG TABLET PO SCH (22:13)
[2018-03-06] MEDS: TRAZODONE 50 MG TABLET PO SCH (22:14)
[2018-03-06] MEDS: MEMANTINE HCL 5 MG TABLET PO SCH (22:14)
[2018-03-06] MEDS: METFORMIN 500 MG TABLET PO SCH (22:14)
[2018-03-06] MEDS: SENNOSIDES 8.6 MG TABLET PO SCH (22:14)
[2018-03-06] MEDS: CALCIUM CARBONATE 500 MG TAB.CHEW PO SCH (22:15)
[2018-03-06] MEDS: RIVAROXABAN 10 MG TABLET PO SCH (22:19)
[2018-03-06] MEDS: TEMAZEPAM 7.5 MG CAPSULE PO PRN (23:45)
[2018-03-06] MEDS: METOPROLOL SUCCINATE 25 MG TAB.SR.24H PO SCH (23:46)
[2018-03-07 01:07] VITALS: BP 157/94
[2018-03-07 08:00] VITALS: BP 156/71
[2018-03-07 08:00] LABS: CHOLESTEROL 163 mg/dL (<200); HDL CHOLESTEROL 64 mg/dL (40-60); LDL 87 mg/dL (0-99); TRIGLYCERIDES 108 mg/dL (30-150)
[2018-03-07 08:06] LABS: ALANINE AMINOTRANSFERASE 11 U/L (12-78); ALBUMIN 3.4 g/dL (3.4-5.0); ALKALINE PHOSPHATASE 66 U/L (46-116); ASPARTATE AMINOTRANSFERASE 10 U/L (15-37); BILIRUBIN,TOTAL 0.3 mg/dL (0.2-1.0); CALCIUM, SERUM 9.5 mg/dL (8.5-10.1); CARBON DIOXIDE 28 mmol/L (21-32); CHLORIDE 101 mmol/L (98-107); CREATININE 1.1 mg/dL (0.6-1.3); GLUCOSE 94 mg/dL (74-106); POTASSIUM 4.2 mmol/L (3.5-5.1); SODIUM SERUM 139 mmol/L (136-145); TOTAL PROTEIN, SERUM 6.8 g/dL (6.4-8.2); UREA NITROGEN, BLOOD 22 mg/dL (7-18)
[2018-03-07] MEDS: POTASSIUM CHLORIDE 10 MEQ TABLET.SA PO SCH ×2 (08:34→09:00)
[2018-03-07] MEDS: METFORMIN 500 MG TABLET PO SCH ×3 (08:34→16:12)
[2018-03-07] MEDS: CHOLECALCIFEROL (VITAMIN D 3) 400 UNIT TABLET PO SCH ×3 (08:34→17:34)
[2018-03-07] MEDS: SENNOSIDES 8.6 MG TABLET PO SCH ×3 (08:34→17:00)
[2018-03-07] MEDS: LORAZEPAM 0.5 MG TABLET PO PRN ×2 (08:35→12:28)
[2018-03-07] MEDS: MAGNESIUM OXIDE 400 MG TABLET PO SCH ×2 (08:35→09:00)
[2018-03-07] MEDS: MULTIVIT, IRON, MIN NO. 8, FA 1 TAB PO SCH ×2 (08:35→09:00)
[2018-03-07] MEDS: LISINOPRIL (20MG) 20 MG TABLET PO SCH ×3 (08:36→17:00)
[2018-03-07] MEDS: METOPROLOL SUCCINATE 25 MG TAB.SR.24H PO SCH ×3 (08:36→17:00)
[2018-03-07] MEDS: ASCORBIC ACID 500 MG TABLET PO SCH ×2 (08:36→09:00)
[2018-03-07] MEDS: CALCIUM CARBONATE 500 MG TAB.CHEW PO SCH ×3 (08:36→17:34)
[2018-03-07] MEDS: NIFEdipine XL (30MG) 30 MG TAB PO SCH ×2 (08:37→09:00)
[2018-03-07] MEDS: BETHANECHOL CHLORIDE (25 MG) 25 MG TABLET PO SCH ×4 (08:37→17:34)
[2018-03-07] MEDS: DOCUSATE SODIUM 100 MG CAPSULE PO SCH ×2 (09:00→17:00)
[2018-03-07] MEDS: DONEPEZIL 5 MG TABLET PO SCH (09:00)
[2018-03-07] MEDS: HYDROCHLOROTHIAZIDE 25 MG TABLET PO SCH (09:00)
[2018-03-07] MEDS ORDERED: ERGOCALCIFEROL (VITAMIN D 2) 50,000 UNIT CAPSULE PO SCH (09:00)
[2018-03-07] MEDS: PROSOURCE / PROSTAT (PYXIS) 30 ML UDC PO SCH ×2 (09:00→17:00)
--- NOTE | 2018-03-07 09:00 | NUR ---
GPS RN NOTE; PT IN THE ROOM RESTING IN BED 1;1 SITTER AT THE SIDE FOR SAFETY, PT RESTLESS, ANXIOUS , UNABLE TO CONTROL BEHAVIOR, HYPERVERBAL, SCREAMING YELLING . REFUSED TO TAKE AM MEDICATIONS . WILL CONTINUE MONITORING FOR SAFETY AND BEHAVIOR Q 15 MIN
[2018-03-07 09:09] LABS: BASOPHILS % (AUTO) 0.6 % (0.0-2.0); EOSINOPHILS % (AUTO) 2.9 % (0.0-6.0); HEMATOCRIT 36 % (33-45); HEMOGLOBIN 11.8 g/dL (11.5-14.8); LYMPHOCYTES # (AUTO) 1.9 /CMM (0.8-4.8); LYMPHOCYTES % (AUTO) 26.7 % (20.0-44.0); MEAN CORPUSCULAR HGB CONC 32 g/dl (31.0-36.0); MEAN CORPUSCULAR VOLUME 86 fL (82-100); MONOCYTES # (AUTO) 0.5 /CMM (0.1-1.30); MONOCYTES % (AUTO) 7.2 % (2.0-12.0); NEUTROPHILS # (AUTO) 4.4 /CMM (1.8-8.9); NEUTROPHILS % (AUTO) 62.6 % (43.0-81.0); PLATELET COUNT (AUTO) 342 /CMM (150-450); RDW COEFFICIENT OF VARIATION 16.5 (11.5-15.0); RED BLOOD CELL COUNT(AUTO) 4.23 MIL/uL (4.0-5.2); WHITE BLOOD COUNT (AUTO) 7.1 K/uL (4.3-11.0)
--- NOTE | 2018-03-07 12:40 | NUR ---
GPS RN NOTE: PT SCREAMING ATIVAN 0.5 MG PO PRN GIVEN WILL CONTINUE MONITORING
[2018-03-07 16:06] VITALS: BP 100/65
[2018-03-07] MEDS: DIVALPROEX SODIUM 125 MG TABLET.DR PO SCH ×2 (16:14→21:37)
[2018-03-07] MEDS: RIVAROXABAN 10 MG TABLET PO SCH (17:34)
[2018-03-07] MEDS: MEMANTINE HCL 5 MG TABLET PO SCH (17:38)
[2018-03-07 20:00] VITALS: BP 128/67
[2018-03-07] MEDS: QUETIAPINE FUMARATE 25 MG TABLET PO SCH (21:37)
[2018-03-07] MEDS: TRAZODONE 50 MG TABLET PO SCH ×2 (21:37→22:34)
[2018-03-07] MEDS: ATORVASTATIN 40 MG TABLET PO SCH (21:38)
[2018-03-07] MEDS: TEMAZEPAM 7.5 MG CAPSULE PO PRN (21:38)
[2018-03-08 08:00] VITALS: BP 140/89
[2018-03-08] MEDS: NIFEdipine XL (30MG) 30 MG TAB PO SCH (09:00)
[2018-03-08] MEDS: PROSOURCE / PROSTAT (PYXIS) 30 ML UDC PO SCH ×2 (09:00→16:06)
[2018-03-08] MEDS: METOPROLOL SUCCINATE 25 MG TAB.SR.24H PO SCH ×2 (09:00→17:37)
[2018-03-08] MEDS: LISINOPRIL (20MG) 20 MG TABLET PO SCH ×2 (09:47→17:37)
[2018-03-08] MEDS: DONEPEZIL 5 MG TABLET PO SCH (09:47)
[2018-03-08] MEDS: METFORMIN 500 MG TABLET PO SCH ×2 (09:47→17:36)
[2018-03-08] MEDS: DIVALPROEX SODIUM 125 MG TABLET.DR PO SCH ×4 (09:48→21:44)
[2018-03-08] MEDS: BETHANECHOL CHLORIDE (25 MG) 25 MG TABLET PO SCH ×3 (09:48→17:37)
[2018-03-08] MEDS: HYDROCHLOROTHIAZIDE 25 MG TABLET PO SCH (09:48)
[2018-03-08] MEDS: MULTIVIT, IRON, MIN NO. 8, FA 1 TAB PO SCH (09:51)
[2018-03-08] MEDS: POTASSIUM CHLORIDE 10 MEQ TABLET.SA PO SCH (09:51)
[2018-03-08] MEDS: SENNOSIDES 8.6 MG TABLET PO SCH ×2 (09:51→17:36)
[2018-03-08] MEDS: DOCUSATE SODIUM 100 MG CAPSULE PO SCH ×2 (09:51→17:37)
[2018-03-08] MEDS: CALCIUM CARBONATE 500 MG TAB.CHEW PO SCH ×2 (09:51→17:36)
[2018-03-08] MEDS: MAGNESIUM OXIDE 400 MG TABLET PO SCH (09:51)
[2018-03-08] MEDS: ASCORBIC ACID 500 MG TABLET PO SCH (09:53)
[2018-03-08] MEDS: CHOLECALCIFEROL (VITAMIN D 3) 400 UNIT TABLET PO SCH ×2 (09:54→17:36)
[2018-03-08] MEDS: LORAZEPAM 0.5 MG TABLET PO PRN ×2 (09:54→17:37)
--- NOTE | 2018-03-08 10:09 | NUR ---
PT SCREAMING, ATIVAN ADMINISTERED.
[2018-03-08] MEDS: TRAMADOL HCL 50 MG TABLET PO PRN (12:03)
[2018-03-08 16:00] VITALS: BP 135/92
[2018-03-08] MEDS: RIVAROXABAN 10 MG TABLET PO SCH (17:38)
[2018-03-08] MEDS: MEMANTINE HCL 5 MG TABLET PO SCH (17:51)
[2018-03-08 20:14] VITALS: BP 126/77
[2018-03-08] MEDS: ATORVASTATIN 40 MG TABLET PO SCH (21:44)
[2018-03-08] MEDS: TRAZODONE 50 MG TABLET PO SCH (21:44)
[2018-03-08] MEDS: QUETIAPINE FUMARATE 25 MG TABLET PO SCH (21:44)
[2018-03-09] MEDS: LORAZEPAM 0.5 MG TABLET PO PRN ×2 (07:56→21:01)
--- NOTE | 2018-03-09 07:57 | NUR ---
GPS RN NOTE: PT SCREAMING ATIVAN 0.5 MG PO PRN GIVEN WILL CONTINUE MONITORING
[2018-03-09] MEDS: CALCIUM CARBONATE 500 MG TAB.CHEW PO SCH ×2 (08:43→17:24)
[2018-03-09] MEDS: METOPROLOL SUCCINATE 25 MG TAB.SR.24H PO SCH ×2 (08:47→17:00)
[2018-03-09] MEDS: BETHANECHOL CHLORIDE (25 MG) 25 MG TABLET PO SCH ×3 (08:48→17:25)
[2018-03-09] MEDS: MAGNESIUM OXIDE 400 MG TABLET PO SCH (08:48)
[2018-03-09] MEDS: NIFEdipine XL (30MG) 30 MG TAB PO SCH (08:48)
[2018-03-09] MEDS: DONEPEZIL 5 MG TABLET PO SCH (08:49)
[2018-03-09] MEDS: HYDROCHLOROTHIAZIDE 25 MG TABLET PO SCH (08:49)
[2018-03-09] MEDS: MULTIVIT, IRON, MIN NO. 8, FA 1 TAB PO SCH (08:49)
[2018-03-09] MEDS: CHOLECALCIFEROL (VITAMIN D 3) 400 UNIT TABLET PO SCH ×2 (08:49→17:24)
[2018-03-09] MEDS: SENNOSIDES 8.6 MG TABLET PO SCH ×2 (08:49→17:00)
[2018-03-09] MEDS: ASCORBIC ACID 500 MG TABLET PO SCH (08:49)
[2018-03-09] MEDS: PROSOURCE / PROSTAT (PYXIS) 30 ML UDC PO SCH ×2 (08:50→17:00)
[2018-03-09] MEDS: LISINOPRIL (20MG) 20 MG TABLET PO SCH ×2 (08:50→17:00)
[2018-03-09] MEDS: POTASSIUM CHLORIDE 10 MEQ TABLET.SA PO SCH (08:50)
[2018-03-09] MEDS: DIVALPROEX SODIUM 125 MG TABLET.DR PO SCH ×4 (08:50→21:25)
[2018-03-09] MEDS: DOCUSATE SODIUM 100 MG CAPSULE PO SCH ×2 (08:50→17:00)
[2018-03-09] MEDS: METFORMIN 500 MG TABLET PO SCH ×2 (08:50→17:26)
--- NOTE | 2018-03-09 13:32 | NUR ---
FREDRICK called the pt's , Ashwin ([phone]), and conducted the assessment with him because the pt was not able to answer the questions on the assessment due to her psychosis. Addendum: 03/12/18 at 1411 by YOLANDA ALCALA Pt's julieta
[2018-03-09] MEDS: QUETIAPINE FUMARATE 25 MG TABLET PO SCH ×2 (13:35→20:48)
--- NOTE | 2018-03-09 13:36 | NUR ---
FREDRICK contacted Renetta ([phone]), from [facility], and discussed the pt returning when she is cleared for discharge. Renetta stated that the pt has a bedhold until but is still able to return to the facility if the notes indicate that she can be managed clinically.
--- NOTE | 2018-03-09 15:12 | NUR ---
Initial Discharge Plan: Pt currently resides at [facility] located at [address] [place] [id number]; . According to the pt's son, Ashwin ([phone]), the pt resided with him at his home before going to the facility but he would like her to return to the facility. SW will work with the pt and the MD regarding appropriate discharge planning. SW will form a safe and proper discharge.
[2018-03-09 16:00] VITALS: BP 108/62
[2018-03-09] MEDS: RIVAROXABAN 10 MG TABLET PO SCH (17:25)
[2018-03-09] MEDS: MEMANTINE HCL 5 MG TABLET PO SCH (17:25)
[2018-03-09 20:32] VITALS: BP 145/72
--- NOTE | 2018-03-09 21:01 | NUR ---
GPS-RN PATIENT IS ANXIOUS, RESTLESS, YELLING AND SCREAMING. ADMINISTERED ATIVAN 0.5MG PO ORDERED. WILL CONTINUE TO MONITOR [id number] FOR SAFETY AND BEHAVIOR.
[2018-03-09] MEDS: ATORVASTATIN 40 MG TABLET PO SCH (21:25)
[2018-03-09] MEDS: TRAZODONE 50 MG TABLET PO SCH (21:26)
[2018-03-09] MEDS: TEMAZEPAM 7.5 MG CAPSULE PO PRN (22:54)
[2018-03-10] MEDS: TRAMADOL HCL 50 MG TABLET PO PRN (00:18)
[2018-03-10 08:00] VITALS: BP 141/99
[2018-03-10] MEDS: CALCIUM CARBONATE 500 MG TAB.CHEW PO SCH ×2 (08:30→16:35)
[2018-03-10] MEDS: DIVALPROEX SODIUM 125 MG TABLET.DR PO SCH ×4 (08:30→21:16)
[2018-03-10] MEDS: MULTIVIT, IRON, MIN NO. 8, FA 1 TAB PO SCH (08:30)
[2018-03-10] MEDS: CHOLECALCIFEROL (VITAMIN D 3) 400 UNIT TABLET PO SCH ×2 (08:30→16:35)
[2018-03-10] MEDS: METOPROLOL SUCCINATE 25 MG TAB.SR.24H PO SCH ×2 (08:30→16:36)
[2018-03-10] MEDS: MAGNESIUM OXIDE 400 MG TABLET PO SCH (08:30)
[2018-03-10] MEDS: ASCORBIC ACID 500 MG TABLET PO SCH (08:30)
[2018-03-10] MEDS: QUETIAPINE FUMARATE 25 MG TABLET PO SCH ×2 (08:31→21:16)
[2018-03-10] MEDS: NIFEdipine XL (30MG) 30 MG TAB PO SCH (08:31)
[2018-03-10] MEDS: DOCUSATE SODIUM 100 MG CAPSULE PO SCH ×2 (08:31→16:37)
[2018-03-10] MEDS: BETHANECHOL CHLORIDE (25 MG) 25 MG TABLET PO SCH ×3 (08:31→16:37)
[2018-03-10] MEDS: DONEPEZIL 5 MG TABLET PO SCH (08:31)
[2018-03-10] MEDS: LISINOPRIL (20MG) 20 MG TABLET PO SCH ×2 (08:32→16:36)
[2018-03-10] MEDS: SENNOSIDES 8.6 MG TABLET PO SCH ×2 (08:33→16:36)
[2018-03-10] MEDS: METFORMIN 500 MG TABLET PO SCH ×2 (08:33→16:36)
[2018-03-10] MEDS: PROSOURCE / PROSTAT (PYXIS) 30 ML UDC PO SCH ×2 (08:33→16:42)
[2018-03-10] MEDS: POTASSIUM CHLORIDE 10 MEQ TABLET.SA PO SCH (08:33)
[2018-03-10] MEDS: HYDROCHLOROTHIAZIDE 25 MG TABLET PO SCH (08:33)
[2018-03-10 16:00] VITALS: BP 138/72
[2018-03-10] MEDS: RIVAROXABAN 10 MG TABLET PO SCH (16:41)
[2018-03-10] MEDS: MEMANTINE HCL 5 MG TABLET PO SCH (17:12)
[2018-03-10] MEDS: LORAZEPAM 0.5 MG TABLET PO PRN (20:05)
--- NOTE | 2018-03-10 20:06 | NUR ---
GPS-RN PATIENT IS VERY ANXIOUS, RESTLESS, YELLING AND SCREAMING. ADMINISTERED ATIVAN 0.5MG PO ORDERED. WILL CONTINUE TO MONITOR.
[2018-03-10 20:53] VITALS: BP 133/70
[2018-03-10] MEDS: ATORVASTATIN 40 MG TABLET PO SCH (21:16)
[2018-03-10] MEDS: TRAZODONE 50 MG TABLET PO SCH (21:16)
[2018-03-10] MEDS: TEMAZEPAM 7.5 MG CAPSULE PO PRN (23:20)
[2018-03-11] MEDS: LORAZEPAM 0.5 MG TABLET PO PRN (05:55)
--- NOTE | 2018-03-11 05:55 | NUR ---
GPS-RN PATIENT IS VERY ANXIOUS, PATIENT IS TAKING HER CLOTHES OFF. YELLING AND SCREAMING. ADMINISTERED ATIVAN 0.5MG PO ORDERED. WILL CONTINUE TO MONITOR [id number] FOR SAFETY AND BEHAVIOR.
[2018-03-11] MEDS ORDERED: DEXTROSE 50%-WATER 50 ML DISP.SYRIN IV PRN (06:30)
[2018-03-11] MEDS: BLOOD SUGAR DIAGNOSTIC 1 EACH STRIP IN SCH ×4 (07:07→21:19)
[2018-03-11 08:00] VITALS: BP 137/79
[2018-03-11] MEDS: PROSOURCE / PROSTAT (PYXIS) 30 ML UDC PO SCH ×2 (09:00→17:39)
[2018-03-11] MEDS: DIVALPROEX SODIUM 125 MG TABLET.DR PO SCH ×4 (09:57→21:12)
[2018-03-11] MEDS: METOPROLOL SUCCINATE 25 MG TAB.SR.24H PO SCH ×2 (09:57→17:00)
[2018-03-11] MEDS: CALCIUM CARBONATE 500 MG TAB.CHEW PO SCH ×2 (09:57→17:31)
[2018-03-11] MEDS: NIFEdipine XL (30MG) 30 MG TAB PO SCH (09:57)
[2018-03-11] MEDS: HYDROCHLOROTHIAZIDE 25 MG TABLET PO SCH (09:58)
[2018-03-11] MEDS: DOCUSATE SODIUM 100 MG CAPSULE PO SCH ×2 (09:58→17:32)
[2018-03-11] MEDS: CHOLECALCIFEROL (VITAMIN D 3) 400 UNIT TABLET PO SCH ×2 (09:59→17:31)
[2018-03-11] MEDS: DONEPEZIL 5 MG TABLET PO SCH (09:59)
[2018-03-11] MEDS: ASCORBIC ACID 500 MG TABLET PO SCH (09:59)
[2018-03-11] MEDS: METFORMIN 500 MG TABLET PO SCH ×2 (09:59→17:31)
[2018-03-11] MEDS: BETHANECHOL CHLORIDE (25 MG) 25 MG TABLET PO SCH ×3 (10:00→17:32)
[2018-03-11] MEDS: MULTIVIT, IRON, MIN NO. 8, FA 1 TAB PO SCH (10:00)
[2018-03-11] MEDS: QUETIAPINE FUMARATE 25 MG TABLET PO SCH ×2 (10:00→21:12)
[2018-03-11] MEDS: POTASSIUM CHLORIDE 10 MEQ TABLET.SA PO SCH (10:00)
[2018-03-11] MEDS: MAGNESIUM OXIDE 400 MG TABLET PO SCH (10:00)
[2018-03-11] MEDS: LISINOPRIL (20MG) 20 MG TABLET PO SCH ×2 (10:01→17:00)
[2018-03-11] MEDS: SENNOSIDES 8.6 MG TABLET PO SCH ×2 (10:01→17:31)
[2018-03-11] MEDS: INSULIN REGULAR, HUMAN 100 UNIT/ML 3 ML VIAL SQ PRN ×3 (10:22→21:22)
[2018-03-11 11:39] LABS: BASOPHILS % (AUTO) 0.4 % (0.0-2.0); EOSINOPHILS % (AUTO) 1.5 % (0.0-6.0); HEMATOCRIT 39 % (33-45); HEMOGLOBIN 12.5 g/dL (11.5-14.8); LYMPHOCYTES # (AUTO) 1.6 /CMM (0.8-4.8); LYMPHOCYTES % (AUTO) 14.1 % (20.0-44.0); MEAN CORPUSCULAR HGB CONC 32 g/dl (31.0-36.0); MEAN CORPUSCULAR VOLUME 86 fL (82-100); MONOCYTES # (AUTO) 0.7 /CMM (0.1-1.30); MONOCYTES % (AUTO) 6.3 % (2.0-12.0); NEUTROPHILS # (AUTO) 8.9 /CMM (1.8-8.9); NEUTROPHILS % (AUTO) 77.7 % (43.0-81.0); PLATELET COUNT (AUTO) 376 /CMM (150-450); RDW COEFFICIENT OF VARIATION 16.2 (11.5-15.0); RED BLOOD CELL COUNT(AUTO) 4.57 MIL/uL (4.0-5.2); WHITE BLOOD COUNT (AUTO) 11.4 K/uL (4.3-11.0)
[2018-03-11 11:43] LABS: ALANINE AMINOTRANSFERASE 12 U/L (12-78); ALBUMIN 3.3 g/dL (3.4-5.0); ALKALINE PHOSPHATASE 78 U/L (46-116); ASPARTATE AMINOTRANSFERASE 11 U/L (15-37); BILIRUBIN,TOTAL 0.4 mg/dL (0.2-1.0); CALCIUM, SERUM 9.4 mg/dL (8.5-10.1); CARBON DIOXIDE 31 mmol/L (21-32); CHLORIDE 101 mmol/L (98-107); GLUCOSE 146 mg/dL (74-106); MAGNESIUM 1.3 mg/dL (1.8-2.4); POTASSIUM 3.6 mmol/L (3.5-5.1); SODIUM SERUM 142 mmol/L (136-145); TOTAL PROTEIN, SERUM 7.2 g/dL (6.4-8.2); UREA NITROGEN, BLOOD 35 mg/dL (7-18)
[2018-03-11] MEDS ORDERED: LORAZEPAM 1 MG TABLET PO PRN (15:30)
--- NOTE | 2018-03-11 15:43 | NUR ---
GPS/RN-NOTES NOTED PATIENT WITH CONTINUOS SCREAMING AND YELLING ,UNABLE TO REDIRECT. ATIVAN 0.5MG P.O GIVEN RN ORDER. WILL CONT. MONITORING FOR SAFETY AND BEHAVIOR.
--- NOTE | 2018-03-11 15:53 | NUR ---
GPS/RN-NOTES RECEIVED VERBAL ORDER FROM DR. GODINEZ TO DO STRAIGHT CATHETERIZATION FOR UA. NOTED AND CARRIED OUT.
[2018-03-11 16:00] VITALS: BP 94/59
[2018-03-11] MEDS: MEMANTINE HCL 5 MG TABLET PO SCH (17:32)
[2018-03-11] MEDS: RIVAROXABAN 10 MG TABLET PO SCH (17:32)
--- NOTE | 2018-03-11 18:08 | NUR ---
GPS/RN-NOTES URINE WAS COLLECTED FROM THE PATIENT.
[2018-03-11 18:21] LABS: APPEARANCE,URINE CLOUDY (CLEAR); BILIRUBIN,URINE NEGATIVE (NEGATIVE); BLOOD, URINE TRACE Ery/uL (NEGATIVE); COLOR,URINE YELLOW (YELLOW); KETONES,URINE 1+ (NEGATIVE); LEUKOCYTE ESTERASE ,URINE 1+ (NEGATIVE); NITRITE, URINE NEGATIVE (NEGATIVE); PROTEIN,URINE 2+ mg/dl (NEGATIVE); UGLUCOSE NEGATIVE (NEGATIVE); UROBILINOGEN,URINE 0.2 EU/dL (0.2)
[2018-03-11 18:44] LABS: BACTERIA,URINE Few /HPF (None Seen); SQUAMOUS EPITHELIAL CELL,UR Few /HPF (None Seen); WBC,URINE 21-50 /HPF (0-3)
[2018-03-11 20:14] VITALS: BP 93/59
[2018-03-11] MEDS: TRAZODONE 50 MG TABLET PO SCH (21:12)
[2018-03-11] MEDS: ATORVASTATIN 40 MG TABLET PO SCH (21:43)
--- NOTE | 2018-03-11 22:48 | NUR ---
GPS-RN PAGED EPIC DR. LUNA REGARDING LAB RESULTS. AWAITING CALL BACK. 23:20 - DR. LUNA CALLED BACK AND NOTIFIED LAB RESULTS OF WBC 11.4, MAG 1.3, BUN 35, PRELIMINARY URINE RESULT, URINE WBC 21-50, AND URINE CULTURE STILL PENDING, PATIENT IS CURRENTLY ON MAGNESIUM OXIDE 400 PO QD. VITAL SIGNS TAKEN , BP 120/62, R17, PULSE 109 TEMP 97.7 O2 SATURATION AT 97% ON RA. DR. LUNA ORDERED LEVAQUIN 500MG PO QD. STARTED FIRST DOSE OF LEVAQUIN ORDERED, PATIENT TOLERATED-WELL, WITH NO ASE NOTED. AND MD ALSO ORDERED CBC, BMP, LACTIC ACID, MAGNESIUM IN AM. ALL ORDERS NOTED AND CARRIED OUT. WILL CONTINUE TO MONITOR PATIENT CLOSELY.
[2018-03-11] MEDS: LEVOFLOXACIN (500MG) 500 MG TABLET PO SCH (23:38)
[2018-03-12 07:55] LABS: BASOPHILS # (AUTO) 0.1 /CMM (0.0-0.2); BASOPHILS % (AUTO) 0.6 % (0.0-2.0); EOSINOPHILS % (AUTO) 2.6 % (0.0-6.0); HEMATOCRIT 36 % (33-45); HEMOGLOBIN 11.4 g/dL (11.5-14.8); LYMPHOCYTES # (AUTO) 1.9 /CMM (0.8-4.8); LYMPHOCYTES % (AUTO) 18.1 % (20.0-44.0); MEAN CORPUSCULAR HGB CONC 32 g/dl (31.0-36.0); MEAN CORPUSCULAR VOLUME 86 fL (82-100); MONOCYTES # (AUTO) 0.7 /CMM (0.1-1.30); MONOCYTES % (AUTO) 7.2 % (2.0-12.0); NEUTROPHILS # (AUTO) 7.4 /CMM (1.8-8.9); NEUTROPHILS % (AUTO) 71.5 % (43.0-81.0); PLATELET COUNT (AUTO) 306 /CMM (150-450); RDW COEFFICIENT OF VARIATION 16.3 (11.5-15.0); RED BLOOD CELL COUNT(AUTO) 4.17 MIL/uL (4.0-5.2); WHITE BLOOD COUNT (AUTO) 10.3 K/uL (4.3-11.0)
[2018-03-12 07:59] LABS: CALCIUM, SERUM 9.5 mg/dL (8.5-10.1); CARBON DIOXIDE 27 mmol/L (21-32); CHLORIDE 102 mmol/L (98-107); GLUCOSE 101 mg/dL (74-106); MAGNESIUM 1.3 mg/dL (1.8-2.4); POTASSIUM 4.7 mmol/L (3.5-5.1); SODIUM SERUM 139 mmol/L (136-145); UREA NITROGEN, BLOOD 41 mg/dL (7-18)
[2018-03-12 08:00] VITALS: BP 133/73
--- NOTE | 2018-03-12 08:23 | NUR ---
GPS/RN [facility] NOTIFIED OF LACTIC ACID OF 2.3, AWAITING CALL BACK
[2018-03-12] MEDS: PROSOURCE / PROSTAT (PYXIS) 30 ML UDC PO SCH (09:00)
[2018-03-12] MEDS: SENNOSIDES 8.6 MG TABLET PO SCH (09:06)
[2018-03-12] MEDS: NIFEdipine XL (30MG) 30 MG TAB PO SCH (09:06)
[2018-03-12] MEDS: POTASSIUM CHLORIDE 10 MEQ TABLET.SA PO SCH (09:06)
[2018-03-12] MEDS: LEVOFLOXACIN (500MG) 500 MG TABLET PO SCH (09:06)
[2018-03-12] MEDS: DOCUSATE SODIUM 100 MG CAPSULE PO SCH (09:06)
[2018-03-12] MEDS: METOPROLOL SUCCINATE 25 MG TAB.SR.24H PO SCH (09:07)
[2018-03-12] MEDS: METFORMIN 500 MG TABLET PO SCH (09:07)
[2018-03-12] MEDS: DONEPEZIL 5 MG TABLET PO SCH (09:07)
[2018-03-12] MEDS: MULTIVIT, IRON, MIN NO. 8, FA 1 TAB PO SCH (09:07)
[2018-03-12] MEDS: CALCIUM CARBONATE 500 MG TAB.CHEW PO SCH (09:07)
[2018-03-12] MEDS: CHOLECALCIFEROL (VITAMIN D 3) 400 UNIT TABLET PO SCH (09:07)
[2018-03-12] MEDS: BETHANECHOL CHLORIDE (25 MG) 25 MG TABLET PO SCH (09:07)
[2018-03-12] MEDS: DIVALPROEX SODIUM 125 MG TABLET.DR PO SCH (09:07)
[2018-03-12] MEDS: HYDROCHLOROTHIAZIDE 25 MG TABLET PO SCH (09:08)
[2018-03-12] MEDS: QUETIAPINE FUMARATE 25 MG TABLET PO SCH (09:08)
[2018-03-12] MEDS: ASCORBIC ACID 500 MG TABLET PO SCH (09:08)
[2018-03-12] MEDS: BLOOD SUGAR DIAGNOSTIC 1 EACH STRIP IN SCH (09:08)
[2018-03-12 09:11] VITALS: BP 133/73
[2018-03-12] MEDS: MAGNESIUM OXIDE 400 MG TABLET PO SCH (09:11)
[2018-03-12] MEDS: LISINOPRIL (20MG) 20 MG TABLET PO SCH (09:11)
[2018-03-12 09:54] LABS: BILIRUBIN,DIRECT 0.1 mg/dL (0.0-0.2)
--- NOTE | 2018-03-12 10:15 | NUR ---
GPS/RN [facility] NOTIFIED OF LACTIC ACID OF 2.8, ORDERS TO TRANSFER TO TELEMETRY FLOOR.
[2018-03-12] MEDS ORDERED: MAGNESIUM OXIDE 400 MG TABLET PO ONE (11:00)
--- NOTE | 2018-03-12 11:15 | NUR ---
GPS/RN PATIENT WAS DISCHARGED TO TELE PER [facility] DUE TO LACTIC ACID LAB OF 2.8. DR GODINEZ IS AWARE AND SHE STATED TO D/C HOLD PRIOR TO TRANSFER. D/C PAPER WORK COMPLETED , BELONGINGS RETURNED. PATIENT TRANSFERRED TO TELE, ALERT X 1, STABLE CONDITION, NO MAJOR DISTRESS NOTED. REPORT GIVEN TO LUCY ALMONTE. Addendum: 03/12/18 at 1831 by ESTEE DICKEY RN TRANSFERRED TO TELE
[2018-03-12] MEDS ORDERED: DEXT50DI8 IV (11:26)
[2018-03-12] MEDS ORDERED: ACET-868 PO (11:26)
[2018-03-12] MEDS ORDERED: CALC-494 PO (11:26)
[2018-03-12] MEDS ORDERED: LEVO500T90 PO (11:26)
[2018-03-12] MEDS ORDERED: BLOO-668 IN (11:26)
[2018-03-12] MEDS ORDERED: INSU100V3 SQ (11:26)
--- NOTE | 2018-03-12 14:11 | NUR ---
FREDRICK called the pt's son, Ashwin ([phone]), and left a message for him stating that the pt was discharged to the medical floor.
--- NOTE | 2018-03-12 14:20 | NUR ---
Discharge Note: Pt was discharged to the medical floor due to sepsis. Pt's hold was broken and the field case manager, Lidya, will be following up with the discharge. FREDRICK informed the field case manager that the pt has placement at [facility]. FREDRICK also called the pt's son, Ashwin ([phone]), and left a message for him stating that the pt was discharged.
== END 2018-03-12 11:15 | disposition short-term general hospital (02) | DRG 885 ==
LOC: ER 16:40 → GPS 18:45
PROVIDERS: ADMIT Psychiatry & Neurology Psychosomatic Medicine; ATTEND Nurse Practitioner Acute Care
DX: F25.0 Schizoaffective disorder, bipolar type (principal); N17.0 Acute kidney failure with tubular necrosis; N18.9 Chronic kidney disease, unspecified; F03.91 Unspecified dementia, unspecified severity, with behavioral disturbance; I48.0 Paroxysmal atrial fibrillation; I25.10 Atherosclerotic heart disease of native coronary artery without angina pectoris; I12.9 Hypertensive chronic kidney disease with stage 1 through stage 4 chronic kidney disease, or unspecified chronic kidney disease; Z86.73 Personal history of transient ischemic attack (TIA), and cerebral infarction without residual deficits; E78.5 Hyperlipidemia, unspecified; E11.22 Type 2 diabetes mellitus with diabetic chronic kidney disease; F41.9 Anxiety disorder, unspecified; F39 Unspecified mood [affective] disorder; Z79.01 Long term (current) use of anticoagulants; Z79.84 Long term (current) use of oral hypoglycemic drugs
CPT/HCPCS: 36415; 80048-TC; 80053-TC; 80061-TC; 80164-TC; 81000-TC; 82248-TC; 82962-TC; 83605-TC; 83735-TC; 85025-TC; 87081-TC; 87086-TC; 87186-TC; A4606; G0480; J1815; Z7610

== ENCOUNTER 2018-03-12 11:13 | Inpatient (IN) | payer MEDICARE, OTHER ==
[~2018-03-12] VITALS: Ht 147.3 cm; Wt 52.6 kg
[~2018-03-12 11:13] MED LIST changes: +AMIN30LI4 PO; +ASCO500T9 PO; +BISA10SU8 RC; +CALC-903 PO; +CHOL400T11 PO; -CLON0.5T12 PO; +DIVA125T2 PO; +DOCU-141 PO; +ERGO500014 PO; +LORA0.5T PO; +MAGN400O6 PO; -METOPROLOL SUCCINATE 25 MG TAB.SR.24H PO SCH; +MULT-447 PO; +NA P133E RC; +SENN-167 PO; -TEMA15CA PO
[2018-03-12] MEDS ORDERED: INSU100V3 SQ (11:26)
[2018-03-12] MEDS ORDERED: LEVO500T90 PO (11:26)
[2018-03-12] MEDS ORDERED: DEXT50DI8 IV (11:26)
[2018-03-12] MEDS ORDERED: ACET-868 PO (11:26)
[2018-03-12] MEDS ORDERED: BLOO-668 IN (11:26)
[2018-03-12] MEDS ORDERED: CALC-494 PO (11:26)
--- NOTE | 2018-03-12 11:30 | NUR ---
DIRECTOR OF CAREER RESOURCES NOTE RECEIVED PATIENT FROM [facility] BROUGHT IN ON A WHEELCHAIR BY NURSE DAVID. PATIENT PLACED ON GERIATRICS PHYSICIAN, CONTROLLED AFIB ON MONITOR. PATIENT DOES NOT SPEAK WELSH AND IS CONFUSED. REFUSING OXYGEN VIA NASAL CANNULA. SKIN INTACT, VITAL SIGNS STABLE, BP 90/49, HR 90, R 18, T. 97.5, SPO2 97% ON ROOM AIR. NO RESPIRATORY DISTRESS NOTED. BED IN LOW AND LOCKED POSITION, CALL LIGHT WITHIN REACH, BED ALARM ON, WILL CONTINUE TO MONITOR CLOSELY.
[2018-03-12 12:00] VITALS: BP 90/49
[2018-03-12] MEDS ORDERED: BISACODYL SUPP (10 MG) 10 MG/SUPP.RECT SUPP.RECT RC PRN (12:30)
[2018-03-12] MEDS ORDERED: ONDANSETRON HCL/PF 4 MG/2 ML VIAL IVP PRN (12:30)
[2018-03-12] MEDS ORDERED: DEXTROSE 50%-WATER 50 ML DISP.SYRIN IV PRN (12:30)
[2018-03-12] MEDS ORDERED: ACETAMINOPHEN 325 MG TABLET PO PRN (12:30)
[2018-03-12] MEDS ORDERED: MAGNESIUM HYDROXIDE 30 ML UDC PO PRN (12:30)
[2018-03-12] MEDS ORDERED: NA PHOS,M-B/NA PHOS,DI-BA 1 EA ENEMA RC PRN (12:30)
[2018-03-12] MEDS ORDERED: ENOXAPARIN SODIUM 40 MG/0.4 ML DISP.SYRIN SQ SCH (13:30)
[2018-03-12] MEDS: BETHANECHOL CHLORIDE (25 MG) 25 MG TABLET PO SCH ×2 (15:07→18:42)
[2018-03-12] MEDS: CEFTRIAXONE 1 G in IV D5W 50 ML IV SCH (15:08)
[2018-03-12] MEDS: IV NS 0.9% 1,000 ML IV PRN (15:09)
[2018-03-12 16:00] VITALS: BP 100/64
--- NOTE | 2018-03-12 17:05 | NUR ---
VALUE ANALYST NOTE PATIENT REMOVED HER IV LINE AND NASAL CANNULA AND HITTING STAFF. ATTEMPTED TO REASSURE AND REORIENT AND CALM PATIENT BUT UNSUCCESSFUL. NOTIFIED DR. SURESH AND RECEIVED AN ORDER FOR BILATERAL SOFT WRIST RESTRAINTS. APPLIED RESTRAINTS ON PATIENT, CIRCULATION AND SKIN WNL. WILL CONTINUE TO REASSESS AND MONITOR CLOSELY AND ENDORSE TO ONCOMING NURSE.
[2018-03-12] MEDS: BLOOD SUGAR DIAGNOSTIC 1 EACH STRIP IN SCH ×2 (17:30→22:00)
[2018-03-12] MEDS: SENNOSIDES 8.6 MG TABLET PO SCH (18:36)
[2018-03-12] MEDS: PROSOURCE / PROSTAT (PYXIS) 30 ML UDC GT SCH (18:36)
[2018-03-12] MEDS: MEMANTINE HCL 5 MG TABLET PO SCH (18:36)
[2018-03-12] MEDS: RIVAROXABAN 15 MG TABLET PO SCH (18:43)
[2018-03-12] MEDS: DOCUSATE SODIUM 100 MG CAPSULE PO SCH (18:44)
[2018-03-12] MEDS: METFORMIN 500 MG TABLET PO SCH (18:44)
[2018-03-12] MEDS: CHOLECALCIFEROL (VITAMIN D 3) 400 UNIT TABLET PO SCH (18:44)
[2018-03-12] MEDS: LISINOPRIL (20MG) 20 MG TABLET PO SCH (18:45)
[2018-03-12] MEDS: METOPROLOL SUCCINATE 25 MG TAB.SR.24H PO SCH (18:51)
[2018-03-12 20:00] VITALS: BP 156/76
--- NOTE | 2018-03-12 20:47 | NUR ---
ROOM COOLER INSTALLER CLOSING NOTE PATIENT RESTING IN BED IN STABLE CONDITION, WRIST RESTRAINTS ON. ENDORSED CARE TO BONE DRIER NURSE FOR CONTINUITY OF CARE.
[2018-03-12] MEDS: ATORVASTATIN 40 MG TABLET PO SCH (21:30)
[2018-03-12] MEDS: CALCIUM CARBONATE 500 MG TAB.CHEW PO SCH (21:30)
[2018-03-13] VITALS: BP_SYST 151; BP_SYST 97; BP_DIAS 49; BP_DIAS 82
[2018-03-13] MEDS: INSULIN REGULAR, HUMAN 100 UNIT/ML 3 ML VIAL SQ PRN ×2 (00:51→07:31)
[2018-03-13 04:00] VITALS: BP 151/82
[2018-03-13] MEDS: IV NS 0.9% 1,000 ML IV PRN ×2 (06:09→23:34)
[2018-03-13 06:53] LABS: BASOPHILS % (AUTO) 0.2 % (0.0-2.0); HEMATOCRIT 36 % (33-45); HEMOGLOBIN 11.8 g/dL (11.5-14.8); LYMPHOCYTES # (AUTO) 1.2 /CMM (0.8-4.8); LYMPHOCYTES % (AUTO) 13.8 % (20.0-44.0); MEAN CORPUSCULAR HGB CONC 33 g/dl (31.0-36.0); MEAN CORPUSCULAR VOLUME 86 fL (82-100); MONOCYTES # (AUTO) 0.5 /CMM (0.1-1.30); MONOCYTES % (AUTO) 5.8 % (2.0-12.0); NEUTROPHILS # (AUTO) 6.9 /CMM (1.8-8.9); NEUTROPHILS % (AUTO) 77.2 % (43.0-81.0); PLATELET COUNT (AUTO) 357 /CMM (150-450); RDW COEFFICIENT OF VARIATION 15.9 (11.5-15.0); RED BLOOD CELL COUNT(AUTO) 4.22 MIL/uL (4.0-5.2); WHITE BLOOD COUNT (AUTO) 8.9 K/uL (4.3-11.0)
[2018-03-13 07:08] LABS: CALCIUM, SERUM 9.5 mg/dL (8.5-10.1); CARBON DIOXIDE 29 mmol/L (21-32); CHLORIDE 103 mmol/L (98-107); CREATININE 1.1 mg/dL (0.6-1.3); GLUCOSE 110 mg/dL (74-106); MAGNESIUM 1.3 mg/dL (1.8-2.4); PHOSPHORUS 2.6 mg/dL (2.5-4.9); POTASSIUM 4.3 mmol/L (3.5-5.1); SODIUM SERUM 140 mmol/L (136-145); UREA NITROGEN, BLOOD 37 mg/dL (7-18)
[2018-03-13 07:19] LABS: CHOLESTEROL 135 mg/dL (<200); HDL CHOLESTEROL 53 mg/dL (40-60); LDL 67 mg/dL (0-99); TRIGLYCERIDES 93 mg/dL (30-150)
--- NOTE | 2018-03-13 07:30 | NUR ---
PATIENT RECEIVED IN WITH BILATERAL SOFT WRIST RESTRAINTS PT IS VERY AGGITATED REFUSING ALL CARE AND SHOUTING NO , HYGIENE DONE PATIENT REPOSITION , BEFUSED BREAKFAST SR X2 UP WILL CONTINUE WITH CARE
[2018-03-13] MEDS: BLOOD SUGAR DIAGNOSTIC 1 EACH STRIP IN SCH ×4 (07:31→22:36)
[2018-03-13 08:00] VITALS: BP 133/54
[2018-03-13] MEDS: ASCORBIC ACID 500 MG TABLET PO SCH (08:47)
[2018-03-13] MEDS: CHOLECALCIFEROL (VITAMIN D 3) 400 UNIT TABLET PO SCH ×2 (08:47→17:56)
[2018-03-13] MEDS: CALCIUM CARBONATE 500 MG TAB.CHEW PO SCH ×2 (08:47→21:00)
[2018-03-13] MEDS: HYDROCHLOROTHIAZIDE 25 MG TABLET PO SCH (08:48)
[2018-03-13] MEDS: SENNOSIDES 8.6 MG TABLET PO SCH ×2 (08:48→17:59)
[2018-03-13] MEDS: DONEPEZIL 5 MG TABLET PO SCH (08:48)
[2018-03-13] MEDS: MAGNESIUM OXIDE 400 MG TABLET PO SCH (08:48)
[2018-03-13] MEDS: BETHANECHOL CHLORIDE (25 MG) 25 MG TABLET PO SCH ×3 (08:49→17:00)
[2018-03-13] MEDS: MULTIVITAMINS,THERAGRAN 1 UDTAB TABLET PO SCH (08:49)
[2018-03-13] MEDS: LISINOPRIL (20MG) 20 MG TABLET PO SCH ×2 (08:49→17:58)
[2018-03-13] MEDS: METFORMIN 500 MG TABLET PO SCH ×2 (09:00→17:57)
[2018-03-13] MEDS: PROSOURCE / PROSTAT (PYXIS) 30 ML UDC GT SCH ×2 (09:00→17:00)
[2018-03-13] MEDS: NIFEdipine XL (30MG) 30 MG TAB PO SCH (09:00)
[2018-03-13] MEDS: METOPROLOL SUCCINATE 25 MG TAB.SR.24H PO SCH ×2 (09:00→17:58)
[2018-03-13] MEDS: DOCUSATE SODIUM 100 MG CAPSULE PO SCH ×2 (09:00→17:59)
--- NOTE | 2018-03-13 09:00 | NUR ---
PATIENT REFUSED ALL DUE ORAL MEDICATIONS CHARGE NURSE AWARE
[2018-03-13 12:00] VITALS: BP 148/66
[2018-03-13] MEDS ORDERED: VALPROATE 250 MG in IV D5W 100 ML IV SCH (14:00)
[2018-03-13] MEDS: CEFTRIAXONE 1 G in IV D5W 50 ML IV SCH (14:13)
[2018-03-13] MEDS: VALPROATE 125 MG in IV D5W 100 ML IV SCH ×2 (14:27→22:37)
[2018-03-13] MEDS: TRAMADOL HCL 50 MG TABLET PO PRN (15:26)
[2018-03-13] MEDS: MEMANTINE HCL 5 MG TABLET PO SCH (17:56)
[2018-03-13] MEDS: RIVAROXABAN 15 MG TABLET PO SCH (17:59)
--- NOTE | 2018-03-13 18:32 | NUR ---
[facility] floor due to sepsis. Patient resides [facility] [phone]. He has hx of dementia and requires assistance with adl's. Current plan is to dc back to SNF once discharge. Addendum: 03/13/18 at 1833 by KATJA HENSON RN Amended: Links added.
[2018-03-13 20:00] VITALS: BP 144/79
--- NOTE | 2018-03-13 20:50 | NUR ---
rn ms notes received patient in bed awake alert and oriented x1 , respirations even and unlabored with equal rise and fall of chest. on ra 97%, on 1:1 sitter at bedside, iv site to right wrist # 22 noted intact and patent with ivf running as ordered. fluids offered as tolerated on soft bilateral wrists restraints. with frequent checks , no skin breakdown, pulse palpable. no pain or discomfort, appears comfortable, all needs attended at this time, safety precautions in place, will continue to monitor,
--- NOTE | 2018-03-13 22:00 | NUR ---
RN MS NOTES NOTED R WRIST IV SITE NOT PROPERLY WORKING NOTED WITH SLIGHT SWELLING OLD IV SITE REMOVED , ELEVATED RIGHT HAND AND PLACED ICE , NO PAIN TO SITE, SKIN COLOR WNL. INSERTED NEW IV SITE, WILL RUN ATB AT THIS TIME,
[2018-03-13] MEDS: ATORVASTATIN 40 MG TABLET PO SCH (22:36)
--- NOTE | 2018-03-13 22:37 | NUR ---
RN MS NOTES TUMS NOT ADMINISTERED NOT AVAILABLE IN [facility] OR PATIENT CASSETTE.
--- NOTE | 2018-03-13 22:40 | NUR ---
RN MS NOTES ACCUCHECK 104. OFFERED JUICE AND WATER
[2018-03-14 04:00] VITALS: BP 140/78
[2018-03-14] MEDS: VALPROATE 125 MG in IV D5W 100 ML IV SCH ×3 (05:04→20:29)
[2018-03-14] MEDS: BLOOD SUGAR DIAGNOSTIC 1 EACH STRIP IN SCH ×5 (05:55→21:20)
--- NOTE | 2018-03-14 06:38 | NUR ---
rn ms closing notes patient in bed awake alert and oriented x1 , respirations even and unlabored with equal rise and fall of chest. on ra 98%%, on 1:1 sitter at bedside, iv site to right wrist # 22 noted intact and patent with ivf running as ordered. fluids offered, as tolerated on soft bilateral wrists restraints,with frequent checks,skin checks intact. no skin breakdown, pulse palpable. no pain or discomfort, appears comfortable, all needs attended at this time, safety precautions in place, will continue to monitor and endorse to next shift.
--- NOTE | 2018-03-14 07:10 | NUR ---
MS/RN INITIAL NOTES RECEIVED PT IN BED, ALERT AND VERBALLY RESPONSIVE. TOLERATING ROOM AIR WELL, NO SOB NOTED. SITTER AT BEDSIDE. NO C/O PAIN AT THIS TIME. NOTED WITH BILATERAL SOFT WRIST RESTRAINT, SKIN INTACT AND NO COMPROMISED CIRCULATION NOTED. WITH ONGOING IVF NS @ 75ML/HR INFUSING WELL ON R WRIST IV G20. HOB ELEVATED. SAFETY MEASURES IN PLACED. CALL LIGHT WITHIN REACH. WILL CONT TO MONITOR
[2018-03-14 08:00] VITALS: BP 170/98
[2018-03-14] MEDS: DOCUSATE SODIUM 100 MG CAPSULE PO SCH ×2 (08:58→17:00)
[2018-03-14] MEDS: METFORMIN 500 MG TABLET PO SCH ×2 (08:58→18:54)
[2018-03-14] MEDS: ASCORBIC ACID 500 MG TABLET PO SCH (08:58)
[2018-03-14] MEDS: CALCIUM CARBONATE 500 MG TAB.CHEW PO SCH ×2 (08:58→21:25)
[2018-03-14] MEDS: SENNOSIDES 8.6 MG TABLET PO SCH ×2 (08:58→18:55)
[2018-03-14] MEDS: MULTIVITAMINS,THERAGRAN 1 UDTAB TABLET PO SCH (08:58)
[2018-03-14] MEDS: CHOLECALCIFEROL (VITAMIN D 3) 400 UNIT TABLET PO SCH ×2 (08:58→18:55)
[2018-03-14] MEDS: PROSOURCE / PROSTAT (PYXIS) 30 ML UDC GT SCH ×2 (08:58→17:00)
[2018-03-14] MEDS: DONEPEZIL 5 MG TABLET PO SCH (08:58)
[2018-03-14] MEDS: BETHANECHOL CHLORIDE (25 MG) 25 MG TABLET PO SCH ×3 (08:59→18:55)
[2018-03-14] MEDS: HYDROCHLOROTHIAZIDE 25 MG TABLET PO SCH (08:59)
[2018-03-14] MEDS: MAGNESIUM OXIDE 400 MG TABLET PO SCH (08:59)
[2018-03-14] MEDS: LISINOPRIL (20MG) 20 MG TABLET PO SCH ×2 (08:59→18:58)
[2018-03-14] MEDS: NIFEdipine XL (30MG) 30 MG TAB PO SCH (09:00)
[2018-03-14] MEDS: METOPROLOL SUCCINATE 25 MG TAB.SR.24H PO SCH ×2 (09:00→18:58)
[2018-03-14] MEDS: TRAMADOL HCL 50 MG TABLET PO PRN (10:21)
[2018-03-14 10:41] LABS: BASOPHILS % (AUTO) 0.4 % (0.0-2.0); EOSINOPHILS % (AUTO) 1.2 % (0.0-6.0); HEMATOCRIT 37 % (33-45); HEMOGLOBIN 11.7 g/dL (11.5-14.8); LYMPHOCYTES # (AUTO) 1.1 /CMM (0.8-4.8); LYMPHOCYTES % (AUTO) 11.1 % (20.0-44.0); MEAN CORPUSCULAR HGB CONC 32 g/dl (31.0-36.0); MEAN CORPUSCULAR VOLUME 86 fL (82-100); MONOCYTES # (AUTO) 0.5 /CMM (0.1-1.30); MONOCYTES % (AUTO) 5.5 % (2.0-12.0); NEUTROPHILS # (AUTO) 7.8 /CMM (1.8-8.9); NEUTROPHILS % (AUTO) 81.8 % (43.0-81.0); PLATELET COUNT (AUTO) 360 /CMM (150-450); RDW COEFFICIENT OF VARIATION 15.7 (11.5-15.0); RED BLOOD CELL COUNT(AUTO) 4.31 MIL/uL (4.0-5.2); WHITE BLOOD COUNT (AUTO) 9.6 K/uL (4.3-11.0)
[2018-03-14 10:55] LABS: CALCIUM, SERUM 8.9 mg/dL (8.5-10.1); CARBON DIOXIDE 28 mmol/L (21-32); CHLORIDE 102 mmol/L (98-107); CREATININE 0.9 mg/dL (0.6-1.3); GLUCOSE 186 mg/dL (74-106); PHOSPHORUS 2.8 mg/dL (2.5-4.9); POTASSIUM 3.5 mmol/L (3.5-5.1); SODIUM SERUM 140 mmol/L (136-145); UREA NITROGEN, BLOOD 23 mg/dL (7-18)
[2018-03-14 10:58] LABS: MAGNESIUM 1.2 mg/dL (1.8-2.4)
--- NOTE | 2018-03-14 11:08 | NUR ---
RN NOTES RECEIVED CALL FROM LAB, CRITICAL LAB VALUE, MAGNESIUM LEVEL OF 1.[address] KERWIN GAYLE RE: CURRENT Mg LEVEL, AWAITING FOR ORDERS Addendum: 03/14/18 at 1119 by ROBER DE PAZ RN ADD: RECEIVED ORDER FROM DR SURESH, GIVE 2 GRAMS IV MAGNESIUM, ORDERS NOTED AND CARRIED OUT
[2018-03-14] MEDS ORDERED: Magnesium 1GM/D5W 100ML PREMIX PIGGYBACK IV STA (11:14)
[2018-03-14] MEDS: Magnesium 1GM/D5W 100ML PREMIX 100 ML IV SCH ×2 (11:51→13:04)
--- NOTE | 2018-03-14 12:18 | NUR ---
RN NOTES PT TRANSFERRED TO [id number] IN STABLE CONDITION, REPORT GIVEN TO GAGE PERERA FOR RONALDO
--- NOTE | 2018-03-14 12:30 | NUR ---
INSURANCE INVESTIGATOR NOTES RECEIVED PT. FROM [facility]. REPORT WAS GIVEN AT BEDSIDE BY ROBER ALMONTE. MEDICATIONS WERE GIVEN FROM REE. PT.'S BELONGINGS, AND CHART WAS BROUGHT WITH PT. PT. WAS YELLING ON TRANFER, PT. IS IN STABLE CONDITION. PT. WAS TRANSFERRED WITHOUT COMPLICATIONS.
--- NOTE | 2018-03-14 12:34 | NUR ---
RN NOTES CLARIFIED WITH DR SURESH INSULIN SLIDING SCALE, PER PT ON MILD SLIDING SCALE GAGE PERERA MADE AWARE
[2018-03-14] MEDS ORDERED: DEXTROSE 50%-WATER 50 ML DISP.SYRIN IV PRN (13:00)
[2018-03-14] MEDS: INSULIN REGULAR, HUMAN 100 UNIT/ML 3 ML VIAL SQ PRN ×2 (13:10→21:27)
[2018-03-14 16:00] VITALS: BP 129/64
[2018-03-14] MEDS: CEFTRIAXONE 1 G in IV D5W 50 ML IV SCH (17:38)
[2018-03-14] MEDS: MEMANTINE HCL 5 MG TABLET PO SCH (18:55)
[2018-03-14] MEDS: RIVAROXABAN 15 MG TABLET PO SCH (18:59)
--- NOTE | 2018-03-14 19:28 | NUR ---
MS RN OPENING NOTES PT WAS RECEIVED IN BED AT LOWEST AND LOCKED POSITION WITH SIDE RAILS UP X2, A/O X1, NO S/S OF PAIN OR DISTRESS NOTED, BREATHING IS EVEN AND UNLABORED ON RA, IV IS PATENT AND INTACT, PT CURRENTLY HAS WRIST RESTRAINTS IN PLACE, SAFETY PRECAUTIONS, CALL LIGHT WITHIN REACH, WILL MONITOR ACCORDINGLY
--- NOTE | 2018-03-14 19:51 | NUR ---
RN CLOSING NOTES PT. IS IN BED A&OX1. PT. IS IN BILATERAL SOFT WRIST RESTRAINTS. BREATHING IS UNLABORED ON ROOM AIR. NO S/S OF ACUTE DISTRESS. IV FLUIDS RUNNING NORMAL SALINE. BED IS IN LOWEST, AND LOCKED POSITION. 3 SIDE RAILS UP, AND CALL LIGHT WITHIN REACH. WILL ENDORSE REPORT TO NURSE.
[2018-03-14 20:00] VITALS: BP 139/69
[2018-03-14] MEDS: IV NS 0.9% 1,000 ML IV PRN (20:29)
[2018-03-14] MEDS: ATORVASTATIN 40 MG TABLET PO SCH (21:25)
--- NOTE | 2018-03-14 22:00 | NUR ---
BG WAS NOTED TO BE 164, 3 UNITS OF INSULIN WERE GIVEN PER SLIDING SCALE
--- NOTE | 2018-03-15 01:15 | NUR ---
WRIST RESTRAINT ORDERS WERE RENEWED DUE TO PATIENT STILL BEING CONFUSED A/O X1, DOSE OF ATIVAN 0.5 MG WAS ORDERED AND GIVEN DUE TO HER CONTSANTLY SHOUTING AND BEING RESTLESS, WILL MONITOR ACCORDINGLY
[2018-03-15] MEDS ORDERED: LORAZEPAM INJ 2 MG/ML VIAL IV ONE (01:30)
[2018-03-15] MEDS: VALPROATE 125 MG in IV D5W 100 ML IV SCH ×2 (04:00→13:12)
--- NOTE | 2018-03-15 06:00 | NUR ---
BG WAS NOTED TO BE 116, NO INSULIN NEEDED PER SLIDING SCALE
--- NOTE | 2018-03-15 06:41 | NUR ---
MS RN CLOSING NOTES PT IN BED AT LOWEST AND LOCKED POSITION WITH SIDE RAILS UP X4, A/O X1 PT IS CONFUSED AND SHOUTS, NO S/S OF PAIN OR DISTRESS NOTED, BREATHING IS EVEN AND UNLABORED ON RA, IV IS PATENT AND INTACT, PT HAS WRIST RESTRAINTS IN PLACE, SAFETY PRECAUTIONS IN PLACE, ALL NEEDS ATTENDED TO, CALL LIGHT WITHIN REACH, WILL ENDORSE TO DAY SHIFT FOR CONTINUITY OF CARE
[2018-03-15] MEDS: BLOOD SUGAR DIAGNOSTIC 1 EACH STRIP IN SCH ×3 (06:45→17:31)
--- NOTE | 2018-03-15 07:44 | NUR ---
MS RN NOTES PATIENT RECEIVED RESTING INSIDE ROOM. AWAKE, ALERT, ORIENTED TO SELF, PATIENT CONFUSED WITH DISORGANIZED THINKING. NO SOB OR ACUTE DISTRESS NOTED. DENIES ANY PAIN OR DISCOMFORT. PATIENT NOTED WITH EPISODES OF SCREAMING AND YELLING. PATIENT DENIES ANY PROBLEMS WHEN ATTENDED TO. BILATERAL SOFT WRIST RESTRAINTS IN PLACE. NO SKIN BREAKDOWN NOTED ON WRISTS. SAFETY PRECAUTIONS IN PLACE. WILL CONTINUE TO MONITOR. BED LOCKED AND IN LOW POSITION. BILATERAL UPPER SIDE RAILS UP AND LOCKED. CALL LIGHT WITHIN EASY REACH
[2018-03-15 08:00] VITALS: BP 156/76
[2018-03-15] MEDS: CALCIUM CARBONATE 500 MG TAB.CHEW PO SCH (08:22)
[2018-03-15] MEDS: MULTIVITAMINS,THERAGRAN 1 UDTAB TABLET PO SCH (08:22)
[2018-03-15] MEDS: METFORMIN 500 MG TABLET PO SCH ×2 (08:22→17:31)
[2018-03-15] MEDS: DONEPEZIL 5 MG TABLET PO SCH (08:22)
[2018-03-15] MEDS: SENNOSIDES 8.6 MG TABLET PO SCH ×2 (08:22→17:31)
[2018-03-15] MEDS: HYDROCHLOROTHIAZIDE 25 MG TABLET PO SCH (08:22)
[2018-03-15] MEDS: PROSOURCE / PROSTAT (PYXIS) 30 ML UDC GT SCH ×2 (08:22→17:31)
[2018-03-15] MEDS: MAGNESIUM OXIDE 400 MG TABLET PO SCH (08:22)
[2018-03-15] MEDS: DOCUSATE SODIUM 100 MG CAPSULE PO SCH ×2 (08:23→17:31)
[2018-03-15] MEDS: CHOLECALCIFEROL (VITAMIN D 3) 400 UNIT TABLET PO SCH ×2 (08:23→17:31)
[2018-03-15] MEDS: BETHANECHOL CHLORIDE (25 MG) 25 MG TABLET PO SCH ×3 (08:23→17:32)
[2018-03-15] MEDS: METOPROLOL SUCCINATE 25 MG TAB.SR.24H PO SCH ×2 (08:23→17:32)
[2018-03-15] MEDS: ASCORBIC ACID 500 MG TABLET PO SCH (08:23)
[2018-03-15] MEDS: NIFEdipine XL (30MG) 30 MG TAB PO SCH (08:23)
[2018-03-15] MEDS: LISINOPRIL (20MG) 20 MG TABLET PO SCH ×2 (08:23→17:31)
[2018-03-15 09:53] LABS: CALCIUM, SERUM 8.7 mg/dL (8.5-10.1); CARBON DIOXIDE 19 mmol/L (21-32); CHLORIDE 101 mmol/L (98-107); CREATININE 0.8 mg/dL (0.6-1.3); GLUCOSE 161 mg/dL (74-106); MAGNESIUM 1.5 mg/dL (1.8-2.4); POTASSIUM 3.9 mmol/L (3.5-5.1); SODIUM SERUM 137 mmol/L (136-145); UREA NITROGEN, BLOOD 18 mg/dL (7-18)
[2018-03-15] MEDS ORDERED: SULF1TAB48 PO (11:32)
[2018-03-15] MEDS ORDERED: Magnesium 1GM/D5W 100ML PREMIX PIGGYBACK IV SCH (12:00)
[2018-03-15] MEDS: Magnesium 1GM/D5W 100ML PREMIX 100 ML IV SCH ×2 (12:01→14:49)
[2018-03-15] MEDS: INSULIN REGULAR, HUMAN 100 UNIT/ML 3 ML VIAL SQ PRN (12:02)
[2018-03-15] MEDS: CEFTRIAXONE 1 G in IV D5W 50 ML IV SCH (14:13)
--- NOTE | 2018-03-15 14:39 | NUR ---
MS RN NOTES PATIENT WITH ORDER FROM DR. BAILON TO DC TO SNF. PATIENT INITIAL PLAN TO DISCHARGE TO [facility]. RECEIVED CALL FROM CASE MANAGEMENT THAT PATIENT WILL BE TRANSFERRED TO [facility] ([phone]). PLACED CALL TO SON, RANDA ([phone]) AND MADE AWARE, VERBALIZED UNDERSTANDING. PLACED CALL TO [facility] ([phone]) AND SPOKE WITH FELIPE ALMONTE AND GAVE REPORT. WILL CONTINUE TO MONITOR
[2018-03-15 15:56] VITALS: BP 126/73
[2018-03-15] MEDS: MEMANTINE HCL 5 MG TABLET PO SCH (17:31)
[2018-03-15 17:32] VITALS: BP 126/73
[2018-03-15] MEDS: RIVAROXABAN 15 MG TABLET PO SCH (17:32)
--- NOTE | 2018-03-15 18:00 | NUR ---
MS RN NOTES PLACED CALL TO DR. GAYLE AND VERIFIED BACTRIM DS ORDER. PER DR. GAYLE, BACTRIM DS 1 TAB PO BID X 4 DAYS. RELAYED TO [facility]. WILL CONTINUE TOP MONITOR
--- NOTE | 2018-03-15 19:00 | NUR ---
MS RN NOTES PATIENT FOR DISCHARGE TODAY. TO TRANSFER TO [facility]. REPORT GIVEN TO FELIPE ALMONTE. PATIENT PICKED UP BY 2 [employer]IL[employer] HELPER FROM [facility]. IV REMOVED WITH MINIMAL BLEEDING NOTED. PRESSURE DRESSING PLACED ON SITE. NO ACTIVE BLEEDING NOTED. PATIENT LEFT UNIT AT 1850 IN STABLE CONDITION. NO SOB OR ACUTE DISTRESS. DENIES ANY PAIN OR DISCOMFORT. NO BELONGINGS WITH PATIENT NOTED UPON DISCHARGE. CHARGE NURSE AWARE. MD MADE AWARE OF DISCHARGE
[2018-04-09] MEDS ORDERED: ERGOCALCIFEROL (VITAMIN D 2) 50,000 UNIT CAPSULE PO SCH (09:00)
== END 2018-03-15 19:00 | DRG 690 ==
LOC: TELE1 11:13 → MEDSG1 12:56 → MED 03-14 11:59
DX: N39.0 Urinary tract infection, site not specified (principal); F05 Delirium due to known physiological condition; F25.0 Schizoaffective disorder, bipolar type; Z86.73 Personal history of transient ischemic attack (TIA), and cerebral infarction without residual deficits; I48.91 Unspecified atrial fibrillation; E78.5 Hyperlipidemia, unspecified; E11.9 Type 2 diabetes mellitus without complications; F03.90 Unspecified dementia, unspecified severity, without behavioral disturbance, psychotic disturbance, mood disturbance, and anxiety; I10 Essential (primary) hypertension; I25.10 Atherosclerotic heart disease of native coronary artery without angina pectoris; F01.50 Vascular dementia, unspecified severity, without behavioral disturbance, psychotic disturbance, mood disturbance, and anxiety
CPT/HCPCS: 36415; 80048-TC; 80061-TC; 82962-TC; 83735-TC; 84100-TC; 84443-TC; 85025-TC; J0696; J1650; J1815; J2060; J3475; J3490; J7030; J7060; Z7610